=== PATIENT | female | born 1975 | race Caucasian/White ===

== ENCOUNTER 2019-01-19 15:54 | Emergency (ER) | payer OTHER, SELFPAY ==
--- OUTSIDE RECORDS SUMMARY | 2019-01-19 15:56 | XMS REPORT ---
:1975 [facility] Address [address] [place] [address] Dr. Bola[address]. [address] [place] [address] Care Team Providers Name Role Phone Unavailable Unavailable Unavailable Problems This patient has no known problems. Allergies, Adverse Reactions, Alerts This patient has no known allergies or adverse reactions. Medications This patient has no known medications.
--- NOTE | 2019-01-19 17:12 | RAD REPORT ---
EXAM DESCRIPTION: RAD - Foot Left 3 View - 01/19/2019 4:59 pm CLINICAL HISTORY: foot injury COMPARISON: No comparisons FINDINGS: Fracture is noted involving the base of the distal phalanx of the fifth toe. Mild surround ing soft tissue swelling.
--- NOTE | 2019-01-19 17:18 | ER ---
Nurse's Notes [facility] Name: Stefany Allison Age: 43 yrs Sex: Female : 1975 Arrival Date: 01/19/2019 Time: 15:56 Bed 30 Private MD: Diagnosis: Nondisplaced fracture of distal phalanx of left lesser toe(s);Rash and other nonspecific skin eruption Presentation: 01/19 16:05 Presenting complaint: Patient states: Hit L little toe on fan approx 2 weeks ago, is ph still having pain and swelling, also c/o poison sumac rash x 3 days. Transition of care: patient was not received from another setting of care. Onset of symptoms was January 19, 2019. Risk Assessment: Do you want to hurt yourself or someone else? Patient reports no desire to harm self or others. Initial Sepsis Screen: Does the patient meet any 2 criteria? No. Patient's initial sepsis screen is negative. Does the patient have a suspected source of infection? No. Patient's initial sepsis screen is negative. Care prior to arrival: None. 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 - Social history:: Smoking status: Patient uses tobacco products, smokes one-half pack cigarettes per day. - Ebola Screening: : No symptoms or risks identified at this time. Screenin:10 Abuse screen: Denies threats or abuse. Denies injuries from another. Nutritional wh screening: No deficits noted. Tuberculosis screening: No symptoms or risk factors identified. Fall Risk None identified. Assessment: 16:10 General: Appears in no apparent distress. Behavior is calm, cooperative, appropriate wh for age. Pain: Complains of pain in left fifth toe Pain does not radiate. Neuro: Level of Consciousness is awake, alert, obeys commands, Oriented to person, place, time, situation, Appropriate for age. Cardiovascular: Capillary refill < 3 seconds. Respiratory: Airway is patent Respiratory effort is even, unlabored, Respiratory pattern is regular, symmetrical. GI: Abdomen is flat, non-distended. : No signs and/or symptoms were reported regarding the genitourinary system. EENT: No signs and/or symptoms were reported regarding the EENT system. Derm: Skin is intact, is healthy with good turgor, Skin is pink, warm \T\ dry. normal. Musculoskeletal: Circulation, motion, and sensation intact. 17:17 Reassessment: Patient appears in no apparent distress at this time. No changes from previously documented assessment. Patient and/or family updated on plan of care and expected duration. Pain level reassessed. Patient is alert, oriented x 3, equal unlabored respirations, skin warm/dry/pink. Vital Signs: 16:07 BP 141 / 99; Pulse 97; Resp 18; Temp 97.9; Pulse Ox 100% on R/A; Weight 68.04 kg; ph Height 5 ft. 4 in. (162.56 cm); Pain 8/10; 17:18 BP 130 / 89; Pulse 98; Resp 16; Pulse Ox 100% ; lt1 16:07 Body Mass Index 25.75 (68.04 kg, 162.56 cm) ED Course: 15:56 Patient arrived in ED. mr 16:07 Triage completed. 16:08 Arm band placed on Patient placed in an exam room. 16:09 Chuyita Trevino is Primary Nurse. 16:10 Simon Flor PA is PHCP. [facility] 16:10 Beto Clark MD is Attending Physician. [facility] 16:10 Patient has correct armband on for positive identification. Bed in low position. Call light in reach. Side rails up X 1. Pulse ox on. NIBP on. 16:59 Foot Left 3 View XRAY In Process Unspecified. EDMO 17:17 Hai Ghosh DPM is Referral Physician. [facility] 17:19 No provider procedures requiring assistance completed. Patient did not have IV access during this emergency room visit. Administered Medications: No medications were administered Outcome: 17:17 Discharge ordered by . [facility] 17:22 Discharged to home ambulatory. 17:22 Condition: stable 17:22 Discharge instructions given to patient, Instructed on discharge instructions, follow up and referral plans. no drinking with medication, no driving heavy equipment, medication usage, POC Toe fracture and Rash Demonstrated understanding of instructions, follow-up care, medications, POC Prescriptions given X 3. 17:23 Patient left the ED. wh Signatures: Dispatcher [employer] EDMS Simon Flor PA PA jmm Rivera, Mary mr Hall, Patricia, RN RN Belnida, Chuyita Lali Maldonado [facility]
--- NOTE | 2019-01-19 17:18 | EDPHYS ---
Physician Documentation [facility] Name: Stefany Allison Age: 43 yrs Sex: Female : 1975 Arrival Date: 01/19/2019 Time: 15:56 Bed 30 Private MD: ED Physician Beto Clark HPI: 01/19 16:41 This 43 yrs old Female presents to ER via Ambulatory with complaints of Toe jmm Injury. 16:41 The patient presents with an injury, pain. Onset: The symptoms/episode began/occurred jmm acutely, 2 week(s) ago. Modifying factors: The symptoms are alleviated by nothing, the symptoms are aggravated by weight bearing, movement. Associated signs and symptoms: Pertinent positives: swelling. This is a 43 year old female with a history of hlp, htn, NE that presents to the ED with complaints of left 5th toe pain after stubbing her toe. Patient complains of ongoing pain and swelling. Patient also states developing a rash secondary to poison oak 3 days ago to the right side of her chest and face. Denies vomiting, fever, shortness of breath. . 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 - Social history:: Smoking status: Patient uses tobacco products, smokes one-half pack cigarettes per day. - Ebola Screening: : No symptoms or risks identified at this time. ROS: 16:41 Constitutional: Negative for fever, chills, and weight loss, Cardiovascular: Negative jmm for chest pain, palpitations, and edema, Respiratory: Negative for shortness of breath, cough, wheezing, and pleuritic chest pain. 16:41 MS/extremity: Positive for injury or acute deformity, pain, swelling. 16:41 Skin: Positive for rash. 16:41 All other systems are negative. Exam: 16:41 Constitutional: This is a well developed, well nourished patient who is awake, alert, jmm and in no acute distress. Head/Face: atraumatic. Eyes: EOMI, no conjunctival erythema appreciated ENT: Moist Mucus Membranes Neck: Trachea midline, Supple Chest/axilla: Normal chest wall appearance and motion. Cardiovascular: Regular rate and rhythm. No edema appreciated Respiratory: Normal respirations, no respiratory distress appreciated Abdomen/GI: Non distended, soft Back: Normal ROM Skin: General appearance color normal 16:41 Musculoskeletal/extremity: swelling noted to the left 5th toe, < 2 sec dist cap refill, NVI. 16:41 Skin: mild erythema noted to the right side of the chest, neck. . 16:41 Neuro: Motor: is normal. 16:41 Psych: Behavior/mood is pleasant, cooperative. Vital Signs: 16:07 BP 141 / 99; Pulse 97; Resp 18; Temp 97.9; Pulse Ox 100% on R/A; Weight 68.04 kg; ph Height 5 ft. 4 in. (162.56 cm); Pain 8/10; 17:18 BP 130 / 89; Pulse 98; Resp 16; Pulse Ox 100% ; lt1 16:07 Body Mass Index 25.75 (68.04 kg, 162.56 cm) ph Procedures: 17:14 Splinting: Splint applied to left foot using gurinder tape, ortho shoe. applied by tech. eliseo Examined by me, post splint application: neurovascular intact, 2+ distal pulses palpable, brisk capillary refill noted, Patient tolerated well. MDM: 16:22 Patient medically screened. [facility] 17:14 Data reviewed: vital signs, nurses notes. Counseling: I had a detailed discussion with eliseo the patient and/or guardian regarding: the historical points, exam findings, and any diagnostic results supporting the discharge/admit diagnosis, the need for outpatient follow up, to return to the emergency department if symptoms worsen or persist or if there are any questions or concerns that arise at home. 17:14 Data reviewed: radiologic studies, plain films. ED course: Patient is advised to follow [facility] up with podiatry and otherwise given strict return precautions. patient understood and agrees with the plan of care. . 01/19 16:24 Order name: Foot Left 3 View XRAY; Complete Time: 17:19 [facility] 01/19 16:57 Order name: Misc. Order: gurinder tape toe; Complete Time: 17:08 [facility] Administered Medications: No medications were administered Disposition: 01/20 07:09 Co-signature as Attending Physician, Beto Clark MD I agree with the assessment and kdr plan of care. Disposition: 01/19/19 17:17 Discharged to Home. Impression: Nondisplaced fracture of distal phalanx of left lesser toe(s), Rash and other nonspecific skin eruption. - Condition is Stable. - Discharge Instructions: Rash, Toe Fracture. - Prescriptions for Hydroxyzine HCl 25 mg Oral Tablet - take 1 tablet by ORAL route every 6 hours As needed; 30 tablet. Prednisone 20 mg Oral Tablet - take 3 tablet by ORAL route once daily for 5 days; 15 tablet. Ultracet 37.5- 325 mg Oral Tablet - take 1 tablet by ORAL route every 6 hours - for up to 5 days; do not exceed 8 tablets per day.; 12 tablet. - Medication Reconciliation Form, Thank You Letter, Antibiotic Education, Prescription Opioid Use form. - Follow up: Hai Ghosh DPM; When: 2 - 3 days; Reason: Recheck today's complaints, Continuance of care, Re-evaluation by your physician. Signatures: Dispatcher [employer] EDMS Beto Clark MD MD kdr Mickail, Joel, PA PA jmm Hall, Patricia, RN RN [facility] Corrections: (The following items were deleted from the chart) 01/19 17:23 17:17 01/19/2019 17:17 Discharged to Home. Impression: Nondisplaced fracture of distal wh phalanx of left lesser toe(s); Rash and other nonspecific skin eruption. Condition is Stable. Forms are Medication Reconciliation Form, Thank You Letter, Antibiotic Education, Prescription Opioid Use. Follow up: Hai Ghosh; When: 2 - 3 days; Reason: Recheck today's complaints, Continuance of care, Re-evaluation by your physician. eliseo
[2019-01-19 17:28] VITALS: TEMP 97.9; O2SAT 100
[2019-01-19 17:29] VITALS: BP 130/89
== END 2019-01-19 17:23 | disposition home or self-care (01) ==
LOC: ER 15:54
DX: S92.535A Nondisplaced fracture of distal phalanx of left lesser toe(s), initial encounter for closed fracture (principal); R21 Rash and other nonspecific skin eruption; W22.8XXA Striking against or struck by other objects, initial encounter; Y93.9 Activity, unspecified; Y92.9 Unspecified place or not applicable; I10 Essential (primary) hypertension; I25.2 Old myocardial infarction; F17.210 Nicotine dependence, cigarettes, uncomplicated
CPT/HCPCS: 99283

== ENCOUNTER 2019-08-25 12:14 | Inpatient (IN) | payer OTHER ==
--- OUTSIDE RECORDS SUMMARY | 2019-08-25 12:17 | XMS REPORT | Continuity of Care Document ---
:1975 Author Organization [facility] t Address [address] [place] [address] Dr. Núñez [address] [place] [id number] Care Team Providers Name Role Phone Unavailable Unavailable Unavailable Problems This patient has no known problems. Allergies, Adverse Reactions, Alerts This patient has no known allergies or adverse reactions. Medications This patient has no known medications. Procedures This patient has no known procedures. Results This patient has no known results.
[2019-08-25] MEDS ORDERED: ACETAMINOPHEN 500 MG TAB ONE (12:32)
[2019-08-25] MEDS ORDERED: NA CHLORIDE 0.9% 2,000 ML ONE (13:00)
[2019-08-25] MEDS ORDERED: CEFTRIAXONE/SWI 1gm 1 GM/10 ML SYR ONE (13:00)
[2019-08-25 13:13] LABS: Absolute Lymphocytes (CBC) 1.6 K/uL (0.7-4.9); Basophils % 0.3 % (0-1.3); Hematocrit 38.1 % (36.0-45.0); Lymphocytes % 6.6 % (15.3-44.8); MPV 8.6 fL (7.6-11.3); RBC Red Blood Cell Count 4.37 M/uL (3.86-4.86)
[2019-08-25 13:14] LABS: Protime INR 1.3
[2019-08-25 13:28] LABS: ALT/SGPT 12 U/L (12-78); AST/SGOT 11 U/L (15-37); Albumin 2.3 g/dL (3.4-5.0); Alkaline Phosphatase 64 U/L (45-117); Amylase 16 U/L (25-115); BUN Blood Urea Nitrogen 12 mg/dL (7-18); Bicarbonate 20 mmol/L (21-32); Bilirubin Direct 0.3 mg/dL (0-0.2); Bilirubin Total 0.7 mg/dL (0.2-1.0); CKMB Creatine Kinase MB < 1.0 ng/mL (0.3-3.6); Creatine Phosphokinase 38 U/L (26-192); Glucose Level 111 mg/dL (74-106); Lipase 41 U/L (73-393); Protein, Total 6.6 g/dL (6.4-8.2); Sodium Level 133 mmol/L (136-145); Troponin (Emerg Dept Use Only) < 0.02 ng/mL (0.0-0.045)
--- NOTE | 2019-08-25 14:06 | RAD REPORT ---
EXAM DESCRIPTION: Mary Single View08/25/2019 1:32 pm CLINICAL HISTORY: fever COMPARISON: none FINDINGS: The lungs appear clear of acute infiltrate. The heart is normal size IMPRESSION: No acute abnormalities displayed
[2019-08-25 14:09] LABS: Anisocytosis 1+; Blood Morphology Comment NOTED (NOT SEEN); Platelet Estimate ADEQ; Poikilocytosis 2+
--- NOTE | 2019-08-25 14:41 | EDPHYS ---
Physician Documentation [facility] Name: Stefany Allison Age: 44 yrs Sex: Female : 1975 Arrival Date: 08/25/2019 Time: 12:21 Bed 7 Private MD: ED Physician Hayden Wiggins HPI: 08/24 12:48 This 44 yrs old Female presents to ER via EMS with complaints of R/O COVID, pm1 FEVER, MALAISE. 12:48 The patient or guardian reports cough, flu symptoms, myalgias, no appetite, Shortness pm1 of breath. Onset: The symptoms/episode began/occurred 7 day(s) ago. Severity of symptoms: in the emergency department the symptoms are actually worse, shortness of breath is present in the emergency department. Modifying factors: The symptoms are alleviated by nothing, the symptoms are aggravated by nothing. Associated signs and symptoms: Pertinent negatives: chest pain, diarrhea, nausea, sore throat, vomiting. The patient has not recently seen a physician. Patient does not take any medications for her medical problems. Patient reports onset of shortness of breath and fever for the past 7 days. Patient typically smokes 1.5 pack per day and has not been able to smoke since onset of shortness of breath, fever, and coughing. Historical: - Allergies: 12:42 No Known Allergies; bp - Home Meds: 12:42 None [Active]; bp - PMHx: 12:42 COPD; CVA; Hyperlipidemia; Hypertension; Myocardial infarction; Turett's; bp - Immunization history:: Adult Immunizations unknown. - Social history:: Smoking status: Patient reports the use of cigarette tobacco products, unknown amount. ROS: 12:48 Eyes: Negative for injury, pain, redness, and discharge, ENT: Negative for injury, pm1 pain, and discharge, Neck: Negative for injury, pain, and swelling, Cardiovascular: Negative for chest pain, palpitations, and edema, Abdomen/GI: Negative for abdominal pain, nausea, vomiting, diarrhea, and constipation, Back: Negative for injury and pain, : Negative for injury, bleeding, discharge, and swelling, MS/Extremity: Negative for injury and deformity, Skin: Negative for injury, rash, and discoloration, Neuro: Negative for headache, weakness, numbness, tingling, and seizure. 12:48 Constitutional: Positive for body aches, chills, fever, malaise, poor PO intake. 12:48 Respiratory: Positive for cough, shortness of breath. Exam: 12:48 Constitutional: This is a well developed, well nourished patient who is awake, alert, pm1 and in no acute distress. Head/Face: Normocephalic, atraumatic. Chest/axilla: Normal chest wall appearance and motion. Nontender with no deformity. No lesions are appreciated. 12:48 Abdomen/GI: Soft, non-tender, with normal bowel sounds. No distension or tympany. No guarding or rebound. No evidence of tenderness throughout. Back: No spinal tenderness. No costovertebral tenderness. Full range of motion. Skin: Warm, dry with normal turgor. Normal color with no rashes, no lesions, and no evidence of cellulitis. MS/ Extremity: Pulses equal, no cyanosis. Neurovascular intact. Full, normal range of motion. 12:48 Cardiovascular: Rate: tachycardic, Rhythm: regular, Pulses: no pulse deficits are appreciated, Edema: is not appreciated. 12:48 Respiratory: mild respiratory distress is noted, Respirations: tachypnea, 30 Breath sounds: bronchial sounds, that are mild, are heard diffusely. 12:48 Neuro: Exam negative for acute changes, Orientation: is normal, Mentation: is normal, Motor: is normal, moves all fours. Vital Signs: 12:35 BP 121 / 74; Pulse 122; Resp 30; Temp 102.6; Pulse Ox 96% ; Weight 72.57 kg; bp 13:15 BP 105 / 74; Pulse 100; Resp 21; Temp 103.5; Pulse Ox 100% on R/A; bp 14:30 BP 94 / 80; Pulse 95; Resp 20; Pulse Ox 100% ; bp 15:22 BP 107 / 97; Pulse 87; Resp 17; Temp 97.8; Pulse Ox 100% ; bp 16:18 BP 100 / 73; Pulse 89; Resp 19; Pulse Ox 98% ; rb1 MDM: 12:34 Patient medically screened. pm1 14:37 Data reviewed: vital signs. Data interpreted: Pulse oximetry: on room air is 100 %. pm1 Interpretation: normal. 14:37 Counseling: I had a detailed discussion with the patient and/or guardian regarding: the pm1 historical points, exam findings, and any diagnostic results supporting the discharge/admit diagnosis, lab results, radiology results. 14:37 Counseling: I had a detailed discussion with the patient and/or guardian regarding: the pm1 need for further work-up and treatment in the hospital. 14:45 Physician consultation: Saman DALLAS was contacted at 14:45, regarding admission, pm1 patient's condition, and will see patient. 08/24 12:34 Order name: Strep; Complete Time: 13:23 bp 08/24 12:34 Order name: COVID-19; Complete Time: 13:54 bp 08/24 12:34 Order name: Flu; Complete Time: 13:23 bp 08/24 12:48 Order name: Amylase, Serum; Complete Time: 13:33 pm08/24 12:48 Order name: Basic Metabolic Panel; Complete Time: 13:33 pm08/24 12:48 Order name: Blood Culture Adult (2) pm08/24 12:48 Order name: CBC with Diff; Complete Time: 14:19 pm08/24 12:48 Order name: Ckmb; Complete Time: 13:33 pm08/24 12:48 Order name: CPK; Complete Time: 13:33 pm08/24 12:48 Order name: Lactate; Complete Time: 13:33 pm08/24 12:48 Order name: LFT's; Complete Time: 13:33 pm08/24 12:48 Order name: Lipase; Complete Time: 13:33 pm08/24 12:48 Order name: Procalcitonin; Complete Time: 13:45 pm08/24 12:48 Order name: Protime (+inr); Complete Time: 13:45 pm08/24 12:34 Order name: CXR XRAY; Complete Time: 14:19 bp 08/24 12:34 Order name: Droplet/Contact Precautions; Complete Time: 13:22 bp 08/24 12:34 Order name: Labs collected and sent; Complete Time: 13:22 bp 08/24 12:48 Order name: Ptt, Activated; Complete Time: 13:45 pm08/24 12:48 Order name: Troponin (emerg Dept Use Only); Complete Time: 13:33 pm08/24 12:48 Order name: Urine Microscopic Only pm1 08/24 13:09 Order name: Throat Culture EDMA 08/24 13:36 Order name: Manual Differential; Complete Time: 14:19 EDMA 08/24 13:54 Order name: Ferritin; Complete Time: 14:19 la1 08/24 12:34 Order name: O2 Per Protocol; Complete Time: 12:35 bp 08/24 12:48 Order name: Accucheck; Complete Time: 13:21 pm1 08/24 12:48 Order name: Cardiac monitoring; Complete Time: 13:21 pm1 08/24 12:48 Order name: EKG - Nurse/Tech; Complete Time: 13:22 pm1 08/24 12:48 Order name: IV Saline Lock - Large Bore; Complete Time: 13:22 pm1 08/24 12:48 Order name: O2 Sat Monitoring; Complete Time: 13:22 pm1 Administered Medications: 12:34 Drug: Tylenol 1000 mg Route: PO; bp 12:48 Follow up: Response: No adverse reaction bp 12:59 Drug: NS 0.9% (30 ml/kg) 30 ml/kg Route: IV; Rate: bolus; Site: right antecubital; bp 16:54 Follow up: IV Status: Completed infusion; IV Intake: 2100ml bp 13:15 Drug: Rocephin 1 grams Route: IV; Rate: calculated rate; Site: right antecubital; bp 16:54 Follow up: IV Status: Completed infusion; IV Intake: 20ml bp 14:45 Drug: Decadron - Dexamethasone 10 mg Route: IVP; Site: right antecubital; bp 16:54 Follow up: Response: No adverse reaction bp 15:15 Drug: Albuterol HFA Inhaler 2 puffs Route: Inhalation; bp Disposition: 17:38 Co-signature as Attending Physician, Hayden Wiggins MD. rn Disposition: 08/25/19 14:40 Hospitalization ordered by Sudha Becerril for Observation. Preliminary diagnosis is Chronic obstructive pulmonary disease with (acute) exacerbation. - Bed requested for Telemetry/MedSurg (observation). - Status is Observation. bp - Condition is Stable. - Problem is new. - Symptoms have improved. Signatures: Dispatcher [employer] [facility] Hayden Wiggins MD MD rn Saman Collins, IT SYSTEMS ADMINISTRATOR-C IT SYSTEMS ADMINISTRATOR-Cla1 Marcel Antoine, ASSEMBLER SURGICAL GARMENT ASSEMBLER SURGICAL GARMENT pm1 Katya, David, RN RN bp Shonda Ramos Corrections: (The following items were deleted from the chart) 16:06 14:40 Hospitalization Ordered by Sudha Becerril MD for Observation. Preliminary eb diagnosis is Chronic obstructive pulmonary disease with (acute) exacerbation. Bed requested for Telemetry/MedSurg (observation). Status is Observation. Condition is Stable. Problem is new. Symptoms have improved. pm1 17:20 16:06 08/25/2019 14:40 Hospitalization Ordered by Sudha Becerril MD for Observation. bp Preliminary diagnosis is Chronic obstructive pulmonary disease with (acute) exacerbation. Bed requested for Telemetry/MedSurg (observation). Status is Observation. Condition is Stable. Problem is new. Symptoms have improved. eb
--- NOTE | 2019-08-25 14:41 | ER ---
Nurse's Notes [facility] Name: Stefany Allison Age: 44 yrs Sex: Female : 1975 Arrival Date: 08/25/2019 Time: 12:21 Bed 7 Private MD: Diagnosis: Chronic obstructive pulmonary disease with (acute) exacerbation Presentation: 08/24 12:35 Chief complaint: EMS states: FEVER, COUGH, MALAISE. Coronavirus screen: Surgical mask bp placed on patient. Patient moved to private room, placed in contact and droplet isolation with eye protection until further assessment. Patient reports a cough. Patient reports shortness of breath or difficulty breathing. Patient reports a measured and/or subjective temperature greater than 100.4F. Patient denies travel on a cruise ship or to a country the [facility] currently lists as an affected area. Patient reports contact with known and/or suspected case of COVID-19. Ebola Screen: No symptoms or risks identified at this time. Initial Sepsis Screen: Does the patient meet any 2 criteria? RR > 20 per min. Temp <36.0*C (96.8*F)) or > 38.3*C (100.9*F). HR > 90 bpm. Yes Does the patient have a suspected source of infection? Yes: Productive cough/pneumonia. Risk Assessment: Do you want to hurt yourself or someone else? Patient reports no desire to harm self or others. Note CODE SEPSIS 700 CALLED. Onset of symptoms is unknown. Care prior to arrival: IV initiated. 18 GA, in the right antecubital area. 12:35 Method Of Arrival: EMS: [facility] bp 12:35 Acuity: LISA 2 bp Triage Assessment: 12:40 General: Appears distressed, uncomfortable, Behavior is cooperative, appropriate for bp age, anxious. Pain: Denies pain. EENT: Reports nasal congestion. Neuro: Level of Consciousness is awake, alert, obeys commands, Oriented to person, place, time, situation, Appropriate for age. Cardiovascular: Rhythm is sinus tachycardia. Respiratory: Reports shortness of breath cough that is. GI: No signs and/or symptoms were reported involving the gastrointestinal system. : No signs and/or symptoms were reported regarding the genitourinary system. Derm: No deficits noted. Musculoskeletal: No deficits noted. Historical: - Allergies: 12:42 No Known Allergies; bp - Home Meds: 12:42 None [Active]; bp - PMHx: 12:42 COPD; CVA; Hyperlipidemia; Hypertension; Myocardial infarction; Turett's; bp - Immunization history:: Adult Immunizations unknown. - Social history:: Smoking status: Patient reports the use of cigarette tobacco products, unknown amount. Screenin:45 Abuse screen: Denies threats or abuse. Denies injuries from another. Nutritional bp screening: No deficits noted. Tuberculosis screening: No symptoms or risk factors identified. Fall Risk None identified. Assessment: 12:45 General: SEE TRIAGE NOTE. bp 13:15 Reassessment: 2ND BLOOD CX COMPLETED. IVF INFUSING AND INITIAL ABX INFUSING. UOP bp PENDING. 14:30 Reassessment: ADMIT INITIATED. VS IMPROVING ON FLUIDS. bp 15:23 Reassessment: ADMIT IN PROCESS, PT SEEN BY HOSPITALIST. bp 16:54 Reassessment: ADMIT COMPLETE, REPORT TO ERNA REDDING. bp Vital Signs: 12:35 BP 121 / 74; Pulse 122; Resp 30; Temp 102.6; Pulse Ox 96% ; Weight 72.57 kg; bp 13:15 BP 105 / 74; Pulse 100; Resp 21; Temp 103.5; Pulse Ox 100% on R/A; bp 14:30 BP 94 / 80; Pulse 95; Resp 20; Pulse Ox 100% ; bp 15:22 BP 107 / 97; Pulse 87; Resp 17; Temp 97.8; Pulse Ox 100% ; bp 16:18 BP 100 / 73; Pulse 89; Resp 19; Pulse Ox 98% ; rb1 ED Course: 12:21 Patient arrived in ED. bp 12:25 Marcel Antoine NP is PHCP. pm1 12:25 Hayden Wiggins MD is Attending Physician. pm1 12:32 David Aldana, VAHID is Primary Nurse. bp 12:40 Arm band placed on. bp 12:41 Triage completed. bp 12:45 Patient has correct armband on for positive identification. Bed in low position. Call bp light in reach. Side rails up X2. 12:45 Maintain EMS IV. Dressing intact. Good blood return noted. Site clean \T\ dry. Gauge \T\ bp site: 18 G RIGHT AC. 12:49 CXR XRAY Sent. bp 13:32 CXR XRAY In Process Unspecified. EDMS 14:39 Sudha Becerril MD is Hospitalizing Provider. pm1 16:54 No provider procedures requiring assistance completed. Patient admitted, IV remains in bp place. Administered Medications: 12:34 Drug: Tylenol 1000 mg Route: PO; bp 12:48 Follow up: Response: No adverse reaction bp 12:59 Drug: NS 0.9% (30 ml/kg) 30 ml/kg Route: IV; Rate: bolus; Site: right antecubital; bp 16:54 Follow up: IV Status: Completed infusion; IV Intake: 2100ml bp 13:15 Drug: Rocephin 1 grams Route: IV; Rate: calculated rate; Site: right antecubital; bp 16:54 Follow up: IV Status: Completed infusion; IV Intake: 20ml bp 14:45 Drug: Decadron - Dexamethasone 10 mg Route: IVP; Site: right antecubital; bp 16:54 Follow up: Response: No adverse reaction bp 15:15 Drug: Albuterol HFA Inhaler 2 puffs Route: Inhalation; bp Intake: 16:54 IV: 2100ml; Total: 2100ml. bp 16:54 IV: 20ml; Total: 2120ml. bp Outcome: 14:40 Decision to Hospitalize by Provider. pm1 16:54 Admitted to Tele accompanied by tech, via stretcher, room 417, with chart, Report bp called to ERNA REDDING 16:54 Condition: stable 16:54 Instructed on the need for admit. 17:20 Patient left the ED. bp Signatures: Dispatcher [employer] EDMS Rizwana Lopes, RN RN rb1 Marcel Antoine NP PACKAGE LINE OPERATOR pm1 David Aldana RN RN bp Corrections: (The following items were deleted from the chart) 12:48 12:35 BP 121 / 74; Pulse 122bpm; Resp 30bpm; Pulse Ox 96%; Temp 102.6F; bp bp 13:30 13:23 BP 105 / 74; Pulse 100bpm; Resp 21bpm; Pulse Ox 100% RA; Temp 103.5F; bp bp
--- NOTE | 2019-08-25 15:16 | P.HP ---
Certification for Inpatient Patient admitted to: Observation With expected LOS: <2 Midnights Patient will require the following post-hospital care: None Practitioner: I am a practitioner with admitting privileges, knowledge of patient current condition, hospital course, and medical plan of care. Services: Services provided to patient in accordance with Admission requirements found in Title 42 Section 412.3 of the Code of Federal Regulations Patient History Date of Service: 08/25/19 Primary Care Provider: None Reason for admission: COPD exacerbation History of Present Illness: This is a 44-year-old female with past medical history including hypertension, hyperlipidemia, CVA, myocardial infarction, Tourette's who presented to the emergency department with a 1 week history of malaise, fatigue, chills, shortness of breath. Patient reports that she then began having fever at home and increasing shortness of breath. Patient was evaluated in the emergency department for her shortness of breath and was found to have fever, elevated white blood cell count at 24.5, hypokalemia with a potassium of 3.0, a slightly elevated pro calcitonin level. Patient was having mild to moderate wheezing in all lung garcia and was in mild respiratory distress. Patient is not currently requiring any oxygen therapy and chest x-ray was negative for any acute findings. ED provider wishes to admit patient for further evaluation and management this condition. Patient also reports that he is supposed to be taking medications for her cholesterol, preventive medications for CVA and myocardial infarction, medications for COPD but she has not been taking these for the past 1 year as she has not had insurance. Patient also admits to smoking approximately half a pack per day. When I saw the patient in the emergency department she appeared uncomfortable, ill but not septic. Patient's lactic acid was negative. Patient will be admitted for further evaluation management of her condition. Allergies No Known Allergies Allergy (Unverified 05/25/15 17:09) Home medications list reviewed: Yes - Past Medical/Surgical History Has patient received pneumonia vaccine in the past: No Diabetic: No -: Hyperlipidemia -: Hypertension -: CVA -: Myocardial infarction -: Tourettes -: Hysterectomy Psychosocial/ Personal History: Patient lives a house by herself. - Family History Mother -: Heart disease Father -: Heart disease, Cancer Notes: Brain cancer - Social History Smoking Status: Current every day smoker Counseled patient to stop smoking for: less than 10 minutes Smoking therapy provided: Yes Alcohol use: Yes CD- Drugs: Yes Caffeine use: Yes Place of Residence: Home Review of Systems General: Fever, Chills, Weakness, Malaise Eyes: Unremarkable ENT: Unremarkable Respiratory: Shortness of Breath, Sputum, Wheezing, As per HPI Cardiovascular: Unremarkable Gastrointestinal: Unremarkable Genitourinary: Unremarkable Musculoskeletal: Unremarkable Integumentary: Unremarkable Neurological: Unremarkable Lymphatics: Unremarkable Physical Examination - Physical Exam General: Alert, In no apparent distress, Oriented x3 HEENT: Atraumatic, Normocephalic Neck: Supple Respiratory: Expiratory wheezes (Mild, Bilaterally) Cardiovascular: No edema, Normal pulses (Mildly tachycardic) Capillary refill: <2 Seconds Gastrointestinal: Normal bowel sounds, Soft and benign Musculoskeletal: No clubbing, No erythema, No tenderness, No warmth Integumentary: No significant lesion Neurological: Normal speech, Normal strength at 5/5 x4 extr, Normal tone - Studies Laboratory Data (last 24 hrs) 08/25/19 12:59: PT 15.3 H, INR 1.30, APTT 32.1 08/25/19 12:59: WBC 24.7 H*, Hgb 12.5, Hct 38.1, Plt Count 235 08/25/19 12:59: Sodium 133 L, Potassium 3.0 L, BUN 12, Creatinine 0.84, Glucose 111 H, Total Bilirubin 0.7, AST 11 L, ALT 12, Alkaline Phosphatase 64, Amylase 16 L, Lipase 41 L Microbiology Data (last 24 hrs): 08/25/19 12:30 Nasopharnyx Coronavirus COVID-19 PCR - Final 08/25/19 12:30 Nasopharnyx Influenza Type A Antigen Screen - Final 08/25/19 12:30 Nasopharnyx Influenza Type B Antigen Screen - Final 08/25/19 12:30 Throat Group A Streptococcus Rapid Screen - Final Assessment and Plan - Plan Assessment Shortness of breath with fever, leukocytosis suspect COPD exacerbation with bacterial infection versus COVID-19 Hypokalemia Tobacco and marijuana abuse Hypertension Hyperlipidemia History of CVA and myocardial infarction Tourette's Plan Shortness of breath with fever, leukocytosis suspect COPD exacerbation with bacterial infection versus COVID-19: Patient has had 2 sets of blood cultures drawn in the emergency department will obtain sputum culture as well and follow up on culture results. Patient will be given albuterol and ICS inhalers during this hospitalization. Will continue with prednisone 10 mg twice daily at this time. IV antibiotics initiated due to leukocytosis and slightly elevated pro calcitonin level with fever and shortness of breath, will discontinue if patient has viral infection. Patient encouraged to discontinue tobacco use and provided with nicotine patch. Boyle virus swab has been sent, will await results. Patient will remain in isolation with droplet precautions until results have returned. DVT prophylaxis with Lovenox 40 mg subcutaneous once daily. Hypokalemia: Electrolyte protocol in place will recheck potassium in the morning. Tobacco and marijuana abuse: Encouraged tobacco and marijuana cessation, prov ided patient with nicotine patch for this hospitalization. Hypertension: Will obtain it to obtain what medications patient was on previously, patient's blood pressure is not elevated at this time, will continue to monitor blood pressure during this hospitalization to determine patient's need for hypertensive medications. Hyperlipidemia: Will obtain lipid panel for morning labs and determine if patient would benefit from statin therapy. Patient does have a history of CVA and a myocardial infarction, anticipate new prescription for statin at d ischarge. History of CVA and myocardial infarction: Patient be given aspirin 81 mg once daily during this hospitalization. Will recommend patient take aspirin 81 mg once daily at home. Tourette's: Will obtain and continue patient's home medications. Discharge Plan: Home Plan to discharge in: 24 Hours - Advance Directives Does patient have a Living Will: No Does patient have a Durable POA for Healthcare: No - Code Status/Comfort Care Code Status Assessed: Yes (Patient is full code) Critical Care: No Time Spent Managing Pts Care (In Minutes): 55
[2019-08-25] MEDS ORDERED: ALBUTEROL INHALER 60 PUFF/8 GM IH PRN ×2 (15:17→16:53)
[2019-08-25] MEDS ORDERED: dexAMETHasone 10 MG/ML VIAL ONE (15:20)
[2019-08-25] MEDS ORDERED: NA CHLORIDE 0.9% 1,000 ML ONE ×2 (15:20→21:26)
[2019-08-25] MEDS ORDERED: ALBUTEROL INHALER 60 PUFF/8 GM IH ONE (16:00)
[2019-08-25] MEDS ORDERED: ACETAMINOPHEN 500 MG TAB PO PRN (16:53)
[2019-08-25] MEDS ORDERED: NS KCL 20MEQ 20 MEQ/1,000 ML BAG IV SCH (16:53)
[2019-08-25] MEDS ORDERED: ONDANSETRON 4 MG/2 ML VIAL IV PRN (16:53)
[2019-08-25 17:34] LABS: Urine Appearance CLOUDY; Urine Bilirubin NEGATIVE (NEG); Urine Blood 2+ (NEG); Urine Color YELLOW; Urine Glucose NEGATIVE (NEG); Urine Protein 1+ (NEG); Urine Specific Gravity <=1.005 (1.005-1.030)
[2019-08-25 17:36] LABS: Urine Blood 2+ (NEG); Urine Glucose NEGATIVE (NEG); Urine Protein 1+ (NEG)
[2019-08-25 17:40] LABS: Urine Microscopic Reflex ORDER UMIC
[2019-08-25 18:40] LABS: Urine Bacteria >50 /HPF (<20); Urine Culture Reflex Order REFLEXED
[2019-08-25] MEDS ORDERED: POTASSIUM CL SA 10 MEQ TAB PO ONE (18:47)
[2019-08-25] MEDS: predniSONE 10 MG TAB PO SCH (20:12)
[2019-08-25] MEDS ORDERED: NA CHLORIDE 0.9% 1,000 ML IV ONE (21:24)
[2019-08-26 03:38] LABS: Basophils % 0.2 % (0-1.3); Hematocrit 41.5 % (36.0-45.0); Lymphocytes % 4.5 % (15.3-44.8); MPV 9.4 fL (7.6-11.3)
[2019-08-26 03:56] LABS: ALT/SGPT 13 U/L (12-78); AST/SGOT 14 U/L (15-37); Alkaline Phosphatase 73 U/L (45-117); BUN Blood Urea Nitrogen 12 mg/dL (7-18); Bicarbonate 19 mmol/L (21-32); Bilirubin Total 0.3 mg/dL (0.2-1.0); Glucose Level 124 mg/dL (74-106); HDL Cholesterol 13 mg/dL (40-60); LDL Cholesterol, Calculated 93 (<130); Potassium 4.1 mmol/L (3.5-5.1); Protein, Total 6.5 g/dL (6.4-8.2); Sodium Level 145 mmol/L (136-145); Thyroid Stimulating Hormone 0.137 uIU/mL (0.360-3.740)
[2019-08-26] MEDS ORDERED: NA CHLORIDE 0.9% 1,000 ML IV ONE (08:34)
[2019-08-26] MEDS ORDERED: ENOXAPARIN 40 MG/0.4 ML SQ SCH (09:00)
[2019-08-26] MEDS ORDERED: CEFTRIAXONE/SWI 1gm 1 GM/10 ML SYR IVP SCH (09:00)
[2019-08-26] MEDS ORDERED: AZITHROMYCIN IV 500 MG in NA CHLORIDE 0.9% 250 ML IVPB SCH (09:00)
[2019-08-26] MEDS ORDERED: AMIODARONE HCL 150 MG in D5W 100 ML IV STA (09:09)
[2019-08-26] MEDS: ASPIRIN EC 81 MG TAB PO SCH (09:38)
[2019-08-26] MEDS: NICOTINE 21 MG/PAT TD SCH (09:38)
[2019-08-26] MEDS: predniSONE 10 MG TAB PO SCH (09:38)
[2019-08-26] MEDS: ENOXAPARIN 80 MG/0.8 ML SQ SCH ×2 (09:39→20:36)
[2019-08-26] MEDS ORDERED: AMIODARONE HCL 900 MG in Dextrose 5%-Water 482 ML IV SCH (10:00)
[2019-08-26] MEDS: FAMOTIDINE 20 MG TAB PO SCH (11:23)
--- NOTE | 2019-08-26 12:11 | P.PN ---
Subjective Date of Service: 08/26/19 Primary Care Provider: None Chief Complaint: COPD exacerbation Subjective: Other (Patient with atrial fibrillation rate around 110-130. Patient requiring oxygen. Patient transferred to ICU due to new onset atrial fibrillation) Physical Examination - Vital Signs Temperature: 96.7 F Blood Pressure: 108/84 Pulse: 100 Respirations: 16 Pulse Ox (%): 100 - Physical Exam General: Alert, In no apparent distress HEENT: Atraumatic Neck: Supple Respiratory: Expiratory wheezes (Bilateral) Cardiovascular: Irregular heart rate/rhythm (AFib rate around 110-130) Gastrointestinal: Normal bowel sounds, No masses, No rebound, No guarding Integumentary: No tenderness/swelling, No erythema, No warmth, No cyanosis Neurological: Normal speech, Normal strength at 5/5 x4 extr, Normal tone, Normal affect - Studies Laboratory Data (last 24 hrs) 08/26/19 03:11: Sodium 145, Potassium 4.1, BUN 12, Creatinine 0.56, Glucose 124 H, Total Bilirubin 0.3, AST 14 L, ALT 13, Alkaline Phosphatase 73, Triglycerides 103, Cholesterol 127, HDL Cholesterol 13 L, Cholesterol/HDL Ratio 9.77 08/26/19 03:11: WBC 21.4 H*, Hgb 13.4, Hct 41.5, Plt Count 210 08/26/19 03:00: Potassium Cancelled 08/25/19 12:59: PT 15.3 H, INR 1.30, APTT 32.1 08/25/19 12:59: WBC 24.7 H*, Hgb 12.5, Hct 38.1, Plt Count 235 08/25/19 12:59: Sodium 133 L, Potassium 3.0 L, BUN 12, Creatinine 0.84, Glucose 111 H, Total Bilirubin 0.7, AST 11 L, ALT 12, Alkaline Phosphatase 64, Amylase 16 L, Lipase 41 L Microbiology Data (last 24 hrs): 08/25/19 12:30 Nasopharnyx Coronavirus COVID-19 PCR - Final 08/25/19 12:30 Nasopharnyx Influenza Type A Antigen Screen - Final 08/25/19 12:30 Nasopharnyx Influenza Type B Antigen Screen - Final 08/25/19 12:30 Throat Group A Streptococcus Rapid Screen - Final Medications List Reviewed: Yes Assessment & Plan Discharge Plan: Home Plan to discharge in: 72 Hours Physician Review Additional Text: Assessment Shortness of breath with fever, leukocytosis likely related to possible underlying pneumonia complicated with COPD exacerbation New onset atrial fibrillation Hypokalemia Tobacco and marijuana abuse History of Hypertension Hyperlipidemia History of CVA and myocardial infarction Tourette's Plan Shortness of breath with fever, leukocytosis likely related to possible underlying pneumonia complicated with COPD exacerbation: Patient was found to be negative for COVID. Continue with antibiotics to cover for pneumonia. Patient with COPD exacerbation. Will start prednisone and inhaler therapy. Will consult pulmonology to further evaluate. Patient with new onset atrial fibrillation. Patient started on Lovenox. Care discussed with cardiology. Will obtain echocardiogram. Patient started on amiodarone as well. Continue to monitor closely. Recheck chest x-ray today. Wean off oxygen. Provide incentive spirometer. Anticipate improvement over the next 2-3 days. New onset atrial fibrillation: Lovenox adjusted. Spoke with cardiology. Will obtain echocardiogram. Amiodarone initiated. Continue to follow closely. Anticipate improvement. Hypokalemia: Electrolyte protocol in place. Tobacco and marijuana abuse: Patient may require nicotine patch. Encourage cessation. History of Hypertension: Blood pressure stable this time. Patient given IV fluid bolus in ICU. Will monitor blood pressure closely. No need for blood pressure medication at this time. Patient has not followed up with physicians in over 5 years. Hyperlipidemia: Obtain and review lipid panel History of CVA and myocardial infarction: Continue aspirin. Tourette's: Will obtain patient's prior medication list. Patient has seen Neurology in the past. Will have nurse call prior pharmacy to obtain the list of her prior medications. Time Spent Managing Pts Care (In Minutes): 55
[2019-08-26] MEDS: NACHLORIDE 0.45% 1,000 ML IV SCH (13:09)
--- NOTE | 2019-08-26 17:59 | CON ---
Date of Consultation: 08/26/2019 Reason For Consultation: Atrial fibrillation with rapid ventricular response. History Of Present Illness: This is a 44-year-old female who came in to the emergency room after sta rted feeling sick yesterday. Claimed that she started having significant fever and felt the chills a nd body aches. There is no cough, no shortness of breath. Generalized weakness and she had signific ant high fever. Denies having dysuria or urinary urgency. Started having some diarrhea. No abdomin al pain. Presented to the emergency room where she was tested negative for coronavirus; however, she was found to be in atrial fibrillation with rapid ventricular response. Blood pressure was on the l ow side, however, responded very well to IV fluids. Past Medical History: Hypertension, dyslipidemia, questionable heart attack, myocardial infarction, CVA, Tourette syndrome. Medications: Refer to reconciliation sheet for detailed list. Allergies: NO KNOWN DRUG ALLERGIES. Past Surgical History: Hysterectomy. Family History: Coronary artery disease, both sides, early in age. Social History: Smokes half a pack per day. Does not drink. She smokes marijuana occasionally. Do es not use any other drugs. Review of Systems: All systems reviewed and they were negative except as mentioned in the HPI. Physical Examination: Vital Signs: Temperature is 96.7, heart rate is 120 to 130, breathing at 16, blood pressure 108/84. General: Pleasant middle-aged female in no apparent distress. Head and Neck: Pupils are equal and reactive to light. Intact eye movements. No JVD. No cervical lymphadenopathy. Neck: Supple. Thyroid is not enlarged. Lungs: Clear to auscultation bilaterally. No rhonchi, rales, or crackles. No accessory muscle use. Heart : Irregularly irregular. No extra sounds. Abdomen: Soft, nontender. Bowel sounds positive. No organomegaly. No masses or hernia. No rigidi ty or rebound. Extremities: There is no edema, clubbing, or cyanosis. Intact pulses. Skin: No rash. Neurologic: Alert, awake, oriented x3. No acute focal deficits appreciated. Investigations: Potassium is 4.1, creatinine is 0.56. TSH is 1.37. Procalcitonin is 0.71. White b lood cell count is 21,400 with 92% neutrophils. Urine showed urinary tract infection. Assessment And Recommendation: 1.Atrial fibrillation with rapid ventricular response with blood pressure being on the low side like ly due to sepsis. Aggressive IV fluid resuscitation is recommended and start her on amiodarone drip bolus with 150 mg over 10 minutes and then 1 mg/minute for now and reassess and if she converts to si nus rhythm on this, we will plan to start her on oral beta-sloan and further evaluate accordingly. 2.Recommend to obtain echocardiogram to evaluate the heart structure. 3.Sepsis, probably source is urine and patient is currently on wide-spectrum antibiotics. Thank you for the courtesy of this consultation. /PRABHAKAR Voice ID: [id number] Report ID: [id number]
[2019-08-26] MEDS: CEFTRIAXONE/SWI 1gm 1 GM/10 ML SYR IVP SCH (20:36)
[2019-08-26] MEDS: DULERA 100/5 (MOMETASONE/FORMOTEROL) INHALER IH SCH (20:37)
[2019-08-26] MEDS ORDERED: predniSONE 20 MG TAB PO SCH (21:00)
[2019-08-27] MEDS: NACHLORIDE 0.45% 1,000 ML IV SCH (00:27)
[2019-08-27] MEDS: TEMAZEPAM 15 MG CAP PO PRN ×2 (00:55→21:01)
[2019-08-27 05:25] LABS: Absolute Lymphocytes (CBC) 1.7 K/uL (0.7-4.9); Basophils % 0.3 % (0-1.3); Hematocrit 37.6 % (36.0-45.0); Lymphocytes % 6.5 % (15.3-44.8); MPV 10.5 fL (7.6-11.3); RBC Red Blood Cell Count 4.16 M/uL (3.86-4.86)
[2019-08-27 06:21] LABS: Magnesium 2.2 mg/dL (1.8-2.4); Potassium 4.1 mmol/L (3.5-5.1); T3 Free 0.84 pg/mL (2.18-3.98); Thyroid Stimulating Hormone 0.254 uIU/mL (0.360-3.740)
[2019-08-27 07:31] LABS: Blood Morphology Comment NOT SEEN (NOT SEEN); Platelet Estimate ADEQ
--- NOTE | 2019-08-27 09:31 | ECHO ---
HEIGHT: 5 ft 4 in WEIGHT: 159 lb 11.2 oz DATE OF STUDY: 08/26/[address]: Silverio Jackson DO 2-DIMENSIONAL: YES M.MODE: YES DOPPLER: YES COLOR FLOW: YES TDS: NO PORTABLE: NO DEFINITY: NO BUBBLE STUDY: NO DIAGNOSIS: ATRIAL FIBRILLATION CARDIAC HISTORY: CATHERIZATION: SURGERY: PROSTHETIC VALVE: PACEMAKER: MEASUREMENTS (cm) DIASTOLIC (NORMALS) SYSTOLIC (NORMALS) IVSd 0.9 (0.6-1.2) LA Diam 3.8 (1.9-4.0) LVEF 57% LVIDd 4.4 (3.5-5.7) LVIDs 3.1 (2.0-3.5) %FS 30% LVPWd 1.0 (0.6-1.2) Ao Diam 2.9 (2.0-3.7) 2 DIMENSIONAL ASSESSMENT: RIGHT ATRIUM: NORMAL LEFT ATRIUM: NORMAL RIGHT VENTRICLE: NORMAL LEFT VENTRICLE: NORMAL TRICUSPID VALVE: MILD TR MITRAL VALVE: MILD MR PULMONIC VALVE: NOT SEEN WELL AORTIC VALVE: NORMAL PERICARDIAL EFFUSION: NONE AORTIC ROOT: NORMAL LEFT VENTRICULAR WALL MOTION: NORMAL DOPPLER/COLOR FLOW: NORMAL COMMENTS: NORMAL LEFT VENTRICULAR EJECTION FRACTION WITH NORMAL WALL MOTION. ATRIAL FIBRILLATION. MILD TRICUSPID AND MITRAL REGURGITATION. TECHNOLOGIST: Chance MCCORMICK
[2019-08-27] MEDS: METOPROLOL TAR 25 MG TAB PO SCH ×2 (10:14→20:46)
[2019-08-27] MEDS: FAMOTIDINE 20 MG TAB PO SCH (10:15)
[2019-08-27] MEDS: ENOXAPARIN 80 MG/0.8 ML SQ SCH ×2 (10:15→20:46)
[2019-08-27] MEDS: CEFTRIAXONE/SWI 1gm 1 GM/10 ML SYR IVP SCH ×2 (10:15→20:48)
[2019-08-27] MEDS: ASPIRIN EC 81 MG TAB PO SCH (10:15)
[2019-08-27] MEDS: NICOTINE 21 MG/PAT TD SCH (10:16)
[2019-08-27] MEDS: DULERA 100/5 (MOMETASONE/FORMOTEROL) INHALER IH SCH ×2 (10:19→20:55)
--- NOTE | 2019-08-27 12:35 | EKG ---
Test Date: 2019-08-25 Test Time: 13:08:39 Box Nailer: BP MEASUREMENT RESULTS: Intervals: Rate: 107 NC: 152 QRSD: 100 QT: 334 QTc: 445 Nikolski: P: 81 NC: 152 QRS: 71 T: 71 INTERPRETIVE STATEMENTS: Sinus tachycardia Otherwise normal ECG No previous ECG available for comparison Electronically Signed On 08-27-19 12:33:17 CDT by Aidan Koch
--- NOTE | 2019-08-27 15:44 | P.PN ---
Subjective Date of Service: 08/27/19 Primary Care Provider: None Chief Complaint: COPD exacerbation Subjective: Improving, Doing well Physical Examination - Vital Signs Temperature: 97.5 F Blood Pressure: 121/94 Pulse: 82 Respirations: 23 Pulse Ox (%): 23 - Physical Exam General: Alert, Cooperative HEENT: Atraumatic Neck: Supple Respiratory: Clear to auscultation bilaterally, Normal air movement Cardiovascular: Irregular heart rate/rhythm (Rate controlled, a fib) Neurological: Normal speech, Normal strength at 5/5 x4 extr, Normal tone, Normal affect - Studies Microbiology Data (last 24 hrs): 08/25/19 12:30 Throat Culture & Sensitivity - Final NORMAL UPPER RESPIRATORY BLADIMIR GROWN. 08/25/19 12:59 Blood - Blood Gram Stain - Final Medications List Reviewed: Yes Assessment & Plan Discharge Plan: Home Plan to discharge in: 48 Hours Physician Review Additional Text: Assessment Shortness of breath with fever, leukocytosis likely related to possible underlying pneumonia complicated with COPD exacerbation New onset atrial fibrillation Hypokalemia Tobacco and marijuana abuse History of Hypertension Hyperlipidemia History of CVA and myocardial infarction Tourette's Subclinical hyperthyroidism Plan Shortness of breath with fever, leukocytosis likely related to possible underlying pneumonia complicated with COPD exacerbation: White count slightly elevated today likely related to steroids. Patient has responded well. No need for oral steroids at this time. Continue with COPD treatment. Continue antibiotic therapy. Patient still in atrial fibrillation. Case discussed with cardiology. Metoprolol added. Continue anti coagulation therapy. Continue to wean off oxygen. Anticipate improvement over the next 1-2 days. New onset atrial fibrillation: Lovenox adjusted. Spoke with cardiology. Patient remains on amiodarone. Still not in sinus rhythm. Metoprolol added. Hypokalemia: Electrolyte protocol in place. Tobacco and marijuana abuse: Will provide nicotine patch. Encourage cessation. History of Hypertension: Metoprolol added Hyperlipidemia: Obtain and review lipid panel History of CVA and myocardial infarction: Continue aspirin. Tourette's: Will obtain patient's prior medication list. Patient has seen Neurology in the past. Will have nurse call prior pharmacy to obtain the list of her prior medications. Subclinical hyperthyroidism: Recommend to recheck lab due in 4-6 weeks. If still half-normal patient will require endocrinology workup. Time Spent Managing Pts Care (In Minutes): 55
[2019-08-28 05:14] LABS: Absolute Lymphocytes (CBC) 2.5 K/uL (0.7-4.9); Basophils % 0.5 % (0-1.3); Hematocrit 38.4 % (36.0-45.0); Lymphocytes % 17.5 % (15.3-44.8); MPV 10.2 fL (7.6-11.3)
[2019-08-28 05:26] LABS: Potassium 3.3 mmol/L (3.5-5.1)
[2019-08-28] MEDS: NACHLORIDE 0.45% 1,000 ML IV SCH (05:30)
[2019-08-28] MEDS ORDERED: POTASSIUM CL SA 10 MEQ TAB PO ONE (06:12)
[2019-08-28 06:21] VITALS: BMI 27.7
[2019-08-28] MEDS: CEFTRIAXONE/SWI 1gm 1 GM/10 ML SYR IVP SCH (08:12)
[2019-08-28] MEDS: NICOTINE 21 MG/PAT TD SCH (08:14)
[2019-08-28] MEDS: METOPROLOL TAR 25 MG TAB PO SCH (08:14)
[2019-08-28] MEDS: FAMOTIDINE 20 MG TAB PO SCH (08:14)
[2019-08-28 08:15] VITALS: O2SAT 95
[2019-08-28] MEDS: DULERA 100/5 (MOMETASONE/FORMOTEROL) INHALER IH SCH (08:15)
[2019-08-28] MEDS: ENOXAPARIN 80 MG/0.8 ML SQ SCH (08:15)
[2019-08-28] MEDS: ASPIRIN EC 81 MG TAB PO SCH (08:18)
[2019-08-28] MEDS ORDERED: AMIODARONE HCL 200 MG TAB PO SCH (09:00)
--- NOTE | 2019-08-28 11:53 | P.DS ---
Admission Date: 08/26/19 Discharge Date: 08/28/19 Primary Care Provider: None Disposition: ROUTINE DISCHARGE Discharge Condition: GOOD Reason for Admission: COPD exacerbation Consultations: Cardiology-Dr. Koch Pulmonary-Dr. Gilliland Procedures: CXR: COMPARISON: none FINDINGS: The lungs appear clear of acute infiltrate. The heart is normal size IMPRESSION: No acute abnormalities displayed ECHO: EF 57% LEFT VENTRICULAR WALL MOTION: NORMAL DOPPLER/COLOR FLOW: NORMAL COMMENTS: NORMAL LEFT VENTRICULAR EJECTION FRACTION WITH NORMAL WALL MOTION. ATRIAL FIBRILLATION. MILD TRICUSPID AND MITRAL REGURGITATION. Medical Problem List: Shortness of breath with fever, leukocytosis secondary to suspect pneumonia with noted bacteremia, blood culture positive for E coli, complicated with COPD exacerbation New onset atrial fibrillation now on chronic anti coagulation therapy Hypokalemia Tobacco and marijuana abuse Hypertension History of CVA and myocardial infarction Subclinical hyperthyroidism Brief History of Present Illness: 45-year-old female with history of COPD, hypertension, hyperlipidemia, CVA, CAD. Patient presented with increasing shortness of breath and fever. Patient found to have elevated leukocytosis. Pneumonia was suspected. COPD exacerbation also likely. Patient admitted for further evaluation. Hospital Course: Patient presented with shortness of breath, fever and leukocytosis. Pneumonia was suspected. Chest x-ray unremarkable. This was further complicated with COPD exacerbation. Patient was treated with antibiotic therapy and COPD me dication. During the course of her stay patient developed new onset atrial fibrillation. Patient required ICU evaluation and treatment. This included IV amiodarone and cardiology evaluation. Her condition improved. Echocardiogram unremarkable. Patient was transition to oral amiodarone. No further cardiac intervention required. At discharge blood pressure stable and patient remains in atrial fibrillation with rate controlled. Room-air saturations within normal range. Blood cultures were positive for E coli bacteremia. At discharge for her new onset atrial fibrillation, patient will continue with amiodarone 400 mg 1 pill twice daily and Eliquis 5 mg 1 pill twice daily. Education on both medication will be provided. Patient will need to monitor for any bleeding. Education on atrial fibrillation and chronic anti coagulation therapy will be provided. For her E. coli bacteremia and suspected pneumonia, patient will continue with Augmentin 875 mg 1 pill twice daily for 14 days. Recommend to recheck blood culture after that time to monitor resolution. Recommend to recheck chest x-ray in 2-4 weeks to monitor resolution as well. For her COPD patient will continue with Symbicort 2 puffs twice daily and Xopenex 2 puffs 3 times a day as needed for shortness of breath. Patient with history of hypertension. Blood pressure has remained stable. No need for medication at this time. Patient had some hypokalemia. Electrolyte protocol was in place. Potassium improved. Recommend to recheck BMP in 1 week to monitor her progress. Patient admits tobacco and marijuana use. Recommend cessation education. Patient provided nicotine patch to help with this cessation. Patient with hyperlipidemia. Recommend to recheck fasting lipid panel in 4-6 weeks. Patient may require medication in the future. This can be further addressed by cardiology. Patient with subclinical hyperthyroidism. Recommend to recheck tsh and free T4 in 2-4 weeks to re-evaluate. If still abnormal patient will require endocrinology evaluation and possible treatment. Vital Signs/Physical Exam: Temp Pulse Resp BP Pulse Ox 97.3 F 95 H 21 H 78/36 L 94 08/28/19 04:00 08/28/19 11:00 08/28/19 11:00 08/28/19 11:00 08/28/19 02:00 General: Alert, In no apparent distress, Oriented x3, Cooperative HEENT: Atraumatic Neck: Supple Respiratory: Clear to auscultation bilaterally, Normal air movement Laboratory Data at Discharge: WBC 14.1 K/uL (4.3-10.9) H D 08/28/19 04:41 Hgb 12.5 g/dL (12.0-15.0) 08/28/19 04:41 Hct 38.4 % (36.0-45.0) 08/28/19 04:41 Plt Count 307 K/uL (152-406) 08/28/19 04:41 PT 15.3 SECONDS (9.5-12.5) H 08/25/19 12:59 INR 1.30 08/25/19 12:59 APTT 32.1 SECONDS (24.3-36.9) 08/25/19 12:59 Sodium 143 mmol/L (136-145) 08/28/19 04:41 Potassium 3.3 mmol/L (3.5-5.1) L 08/28/19 04:41 BUN 20 mg/dL (7-18) H 08/28/19 04:41 Creatinine 0.76 mg/dL (0.55-1.3) 08/28/19 04:41 Glucose 95 mg/dL (74-106) 08/28/19 04:41 Magnesium 2.0 mg/dL (1.8-2.4) 08/28/19 04:41 Total Bilirubin 0.3 mg/dL (0.2-1.0) 08/26/19 03:11 AST 14 U/L (15-37) L 08/26/19 03:11 ALT 13 U/L (12-78) 08/26/19 03:11 Alkaline Phosphatase 73 U/L (45-117) 08/26/19 03:11 Triglycerides 103 mg/dL (<150) 08/26/19 03:11 Cholesterol 127 mg/dL (<200) 08/26/19 03:11 HDL Cholesterol 13 mg/dL (40-60) L 08/26/19 03:11 Cholesterol/HDL Ratio 9.77 08/26/19 03:11 Amylase 16 U/L (25-115) L 08/25/19 12:59 Lipase 41 U/L (73-393) L 08/25/19 12:59 Home Medications: Amiodarone HCl [Cordarone*] 400 mg PO BID #120 tab 08/28/19 Amox/Clavulanate [Augmentin 875-125 Tab] 875 mg PO BID #28 tab 08/28/19 Apixaban [Eliquis] 5 mg PO BID #60 tablet 08/28/19 Budesonide/Formoterol Fumarate [Symbicort 160-4.5 Mcg Inhaler] 2 puff IH BID #1 hfa.aer.ad 08/28/19 Levalbuterol Tartrate [Xopenex Hfa] 2 puff IH TID PRN #1 hfa.aer.ad 08/28/19 Metoprolol Tartrate [Lopressor*] 12.5 mg PO BID #60 tab 08/28/19 Nicotine [Nicoderm*] 21 mg TD DAILY #30 patch.td24 08/28/19 New Medications: Amox/Clavulanate [Augmentin 875-125 Tab] 875 mg PO BID #28 tab Amiodarone HCl [Cordarone*] 400 mg PO BID #120 tab Apixaban [Eliquis] 5 mg PO BID #60 tablet Metoprolol Tartrate [Lopressor*] 12.5 mg PO BID #60 tab Nicotine [Nicoderm*] 21 mg TD DAILY #30 patch.td24 Budesonide/Formoterol Fumarate [Symbicort 160-4.5 Mcg Inhaler] 2 puff IH BID #1 hfa.aer.ad Levalbuterol Tartrate [Xopenex Hfa] 2 puff IH TID PRN #1 hfa.aer.ad PRN Reason: Shortness Of Breath Patient Discharge Instructions: 1. Recommend follow up with PCP in 1 week to follow up this hospitalization. 2. Patient presented with shortness of breath, fever and leukocytosis. Pneumonia was suspected. Chest x-ray unremarkable. This was further complicated with COPD exacerbation. Patient was treated with antibiotic therapy and COPD medication. During the course of her stay patient developed new onset atrial fibrillation. Patient required ICU evaluation and treatment. This included IV amiodarone and cardiology evaluation. Her condition improved. Echocardiogram unremarkable. Patient was transition to oral amiodarone. No further cardiac intervention required. At discharge blood pressure stable and patient remains in atrial fibrillation with rate controlled. Room-air saturations within normal range. Blood cultures were positive for E coli bacteremia. At discharge for her new onset atrial fibrillation, patient will continue with amiodarone 400 mg 1 pill twice daily and Eliquis 5 mg 1 pill twice daily. Education on both medication will be provided. Patient will need to monitor for any bleeding. Education on atrial fibrillation and chronic anti coagulation therapy will be provided. For her E. coli bacteremia and suspected pneumonia, patient will continue with Augmentin 875 mg 1 pill twice daily for 14 days. Recommend to recheck blood culture after that time to monitor resolution. Recommend to recheck chest x-ray in 2-4 weeks to monitor resolution as well. For her COPD patient will continue with Symbicort 2 puffs twice daily and Xopenex 2 puffs 3 times a day as needed for shortness of breath. 4. Patient with history of hypertension. Blood pressure has remained stable. No need for medication at this time. 5. Patient had some hypokalemia. Electrolyte protocol was in place. Potassium improved. Recommend to recheck BMP in 1 week to monitor her progress. 6. Patient admits tobacco and marijuana use. Recommend cessation education. Patient provided nicotine patch to help with this cessation. 7. Patient with hyperlipidemia. Recommend to recheck fasting lipid panel in 4-6 weeks. Patient may require medication in the future. This can be further addressed by cardiology. 8. Patient with subclinical hyperthyroidism. Recommend to recheck tsh and free T4 in 2-4 weeks to re- evaluate. If still abnormal patient will require endocrinology evaluation and possible treatment. Diet: AHA Activity: Ad joselyn Time spent managing pt's care (in minutes): 55
--- NOTE | 2019-08-28 12:31 | PN ---
Date of Progress Note: 08/27/2019 History: Ms. Allison is a 44-year-old woman who was admitted with sepsis, COPD exacerbation, has been on IV amiodarone, aspirin, Lovenox, antibiotics. Echocardiogram is pending for today. She was seen by Dr. Price for her atrial fibrillation yesterda y. She remains in atrial fibrillation at a rate of 80. Her TSH is 0.254. Her white count is about 27,000. As mentioned earlier, her echocardiogram is pending. I would like to continue her IV amiodarone, con finance insurance manager DC prednisone, add a low-dose beta sloan and we will see how she does in the morning. RODGER/PRABHAKAR Voice ID: [id number] Report ID: [id number]
[2019-08-28 12:46] VITALS: BP 111/89
--- NOTE | 2019-08-28 12:46 | PN ---
Date of Progress Note: 08/28/2019 History: Ms. Allison has been followed for atrial fibrillation that was new in onset. She has COPD. Had sepsis that has been treated successfully. She is feeling good right now. Her white count has improved. She remained in atrial fibrillation at a rate of 80 on low-dose beta-sloan and IV amioda shania. I would then feel comfortable with her being switched to p.o. amiodarone 400 mg b.i.d. for 1 w [place]ka[place] point. After that, we will leave her on 200 mg daily. If she does not convert within the next 2-3 wee ks, we will probably do a cardioversion. I will see her in the office in the near future. Echocardi ogram was normal. RODGER/PRABHAKAR Voice ID: [id number] Report ID: [id number]
[2019-08-28 14:11] VITALS: TEMP 97.9
== END 2019-08-28 13:30 | disposition home or self-care (01) | DRG 871 ==
LOC: ER 12:14 → ERHOLD 15:01 → 4TH 16:52 → 3RD-ICU 23:40 → OBSVTOIN 08-26 07:57
PROVIDERS: ADMIT Internal Medicine; ATTEND Family Medicine
DX: A41.9 Sepsis, unspecified organism (principal); J18.9 Pneumonia, unspecified organism; J44.1 Chronic obstructive pulmonary disease with (acute) exacerbation; J44.0 Chronic obstructive pulmonary disease with (acute) lower respiratory infection; E78.5 Hyperlipidemia, unspecified; I10 Essential (primary) hypertension; Z86.73 Personal history of transient ischemic attack (TIA), and cerebral infarction without residual deficits; I25.2 Old myocardial infarction; R06.02 Shortness of breath; Z20.828 Contact with and (suspected) exposure to other viral communicable diseases; E87.6 Hypokalemia; Z91.14 Patient's other noncompliance with medication regimen; F17.200 Nicotine dependence, unspecified, uncomplicated; Z90.710 Acquired absence of both cervix and uterus; Z60.2 Problems related to living alone; F95.2 Tourette's disorder; F12.10 Cannabis abuse, uncomplicated; R50.9 Fever, unspecified; R05 Cough; I48.91 Unspecified atrial fibrillation; E05.90 Thyrotoxicosis, unspecified without thyrotoxic crisis or storm; B96.20 Unspecified Escherichia coli [E. coli] as the cause of diseases classified elsewhere; Z79.01 Long term (current) use of anticoagulants; I25.10 Atherosclerotic heart disease of native coronary artery without angina pectoris; Z79.51 Long term (current) use of inhaled steroids; Z79.899 Other long term (current) drug therapy
CPT/HCPCS: 36415; 71045; 80048; 80053; 80061; 80076; 81003; 81015; 81025; 82150; 82550; 82553; 82728; 83605; 83690; 83735; 84145; 84439; 84443; 84481; 84484; 85025; 85610; 85730; 87040; 87070; 87077; 87081; 87086; 87088; 87186; 87205; 87804; 93005; 93306; 96365; 96366; 96375; 99285; G0378; J0282; J0456; J0696; J1100; J1650; J2405; J7030; J7060; J7512; J7606; U0002

== ENCOUNTER 2023-09-30 17:33 | Inpatient (IN) | payer OTHER ==
--- NOTE | 2023-09-30 18:03 | RAD REPORT ---
EXAM DESCRIPTION: CT - Ct Stroke Brain Wo Cont - 09/30/2023 5:53 pm CLINICAL HISTORY: STROKE ALERT Headache, drowsiness, CVA symptomology COMPARISON: <Comparisons> TECHNIQUE: All CT scans are performed using dose optimization technique as appropriate and may inclu de automated exposure control or mA/KV adjustment according to patient size. FINDINGS: No intracranial hemorrhage, hydrocephalus or extra-axial fluid collection.No areas of brai n edema or evidence of midline shift. The paranasal sinuses and mastoids are clear. The calvarium is intact. IMPRESSION: No acute intracranial abnormality.
[2023-09-30 18:12] LABS: Absolute Basophils 0.1 K/uL (0-0.5); Absolute Eosinophils 0.2 K/uL (0-0.5); Absolute Lymphocytes (CBC) 2.3 K/uL (0.7-4.9); Absolute Monocytes 0.8 K/uL (0.1-1.3); Absolute Neutrophil 7.2 K/uL (1.8-8.0); Basophils % 1.2 % (0-1.3); Hematocrit 44.1 % (36.0-45.0); Hemoglobin 14.4 g/dL (12.0-15.0); Lymphocytes % 21.5 % (15.3-44.8); MCH 29.6 pg (27.0-35.0); MCHC 32.7 g/dL (32.0-36.0); MCV 90.4 fL (80-100); MPV 7.5 fL (7.6-11.3); Neutrophils % 67.3 % (41.7-73.7); Nucleated Red Blood Cells % 0.1 % (0-0); Platelets 296 thou/uL (152-406); RBC Red Blood Cell Count 4.88 M/uL (3.86-4.86); Red Cell Distribution Width 14.2 % (12.1-15.2)
[2023-09-30 18:24] LABS: PT Prothrombin Time 9.9 SECONDS (9.4-12.5); PTT, Activated Partial Thromb 34.7 SECONDS (24.3-36.9); Protime INR 0.88
--- NOTE | 2023-09-30 18:32 | RAD REPORT ---
EXAM DESCRIPTION: RAD - Chest Single View - 09/30/2023 6:27 pm CLINICAL HISTORY: cva Chest pain. COMPARISON: <Comparisons> FINDINGS: Portable technique limits examination quality. Mild interstitial lung opacities bilaterally could be related to bronchitis or pulmonary edema. The h eart is normal in size. No displaced fractures.
[2023-09-30 18:35] LABS: ALT/SGPT 37 U/L (13-56); AST/SGOT 24 U/L (15-37); Albumin 3.2 g/dL (3.4-5.0); Albumin/Globulin Ratio 0.8 (1.1-1.8); Alkaline Phosphatase 108 U/L (45-117); Anion Gap 8.9 mEq/L (5.0-15.0); BUN Blood Urea Nitrogen 18 mg/dL (7-18); Bicarbonate 26 mEq/L (21-32); Bilirubin Total 0.3 mg/dL (0.2-1.0); Glomerular Filtration Rate 69 ml/min (=/>90); Glucose Level 126 mg/dL (74-106); Magnesium 2.3 mg/dL (1.6-2.4); Potassium 3.9 mEq/L (3.5-5.1); Protein, Total 7.2 g/dL (6.4-8.2); Sodium Level 139 mEq/L (136-145)
--- NOTE | 2023-09-30 18:36 | RAD REPORT ---
EXAM DESCRIPTION: CT - Head angio - 09/30/2023 6:30 pm CLINICAL HISTORY: stroke alert Headache, CVA COMPARISON: <Comparisons> TECHNIQUE: CT angiography of the head was performed with MIPs. All CT scans are performed using dose optimization technique as appropriate and may include automated exposure control or mA/KV adjustment according to patient size. FINDINGS: No evidence of large vessel occlusion. No evidence of aneurysm is detected. No flow-limiti ng stenosis or vascular malformation identified. Antegrade flow is seen in the vertebral arteries. The vertebral arteries are codominant. The visualized dural venous sinuses are patent. IMPRESSION: No significant flow abnormality is detected.
--- NOTE | 2023-09-30 18:38 | RAD REPORT ---
EXAM DESCRIPTION: CT - Neck Angio - 09/30/2023 6:29 pm CLINICAL HISTORY: cva Headache, drowsiness COMPARISON: <Comparisons> TECHNIQUE: CT angiography of the neck vessels was performed with MIPs. All CT scans are performed using dose optimization technique as appropriate and may include automated exposure control or mA/KV adjustment according to patient size. FINDINGS: A left aortic arch is identified with normal three vessel configuration of the great vesse ls. No significant flow abnormality is seen of the common carotid bilaterally. Mild to moderate hard plaque is seen in both carotid bulbs. Stenosis of less than 50% bilaterally bas ed on NASCET criteria. Normal flow is seen within both vertebral arteries. IMPRESSION: Hard plaquing in both carotid bulb resulting in stenosis of less than 50%. NASCET criteria used. Mild 0-49% stenosis Moderate 50-69% stenosis Severe 70-99% stenosis
[2023-09-30 18:43] LABS: Bilirubin Direct < 0.2 mg/dL (0-0.2); Bilirubin Indirect, Calculated 0.1 mg/dL (0.2-0.8)
[2023-09-30] MEDS ORDERED: ASPIRIN EC 325 MG TABLET PO ONE (19:11)
--- NOTE | 2023-09-30 19:37 | EDPHYS ---
Physician Documentation [facility] Name: Stefany Allison Age: 48 yrs Sex: Female : 1975 Arrival Date: 09/30/2023 Time: 17:33 Bed 18 Private MD: ED Physician Sandeep Wheeler HPI: 09/29 19:12 This 48 yrs old Female presents to ER via Wheelchair with complaints of Weakness, rt Slurred Speech. 19:12 Patient presents to the ED with slurred speech, right-sided weakness. This started the rt patient woke up this way. Went to bed normal. Denies other acute complaints at this time, symptoms are moderate in severity, no other aggravating or alleviating factors.. 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 - Infectious Disease History:: Denies. - Social history:: Smoking status: Patient reports the use of cigarette tobacco products, smokes one pack cigarettes per day. - Family history:: not pertinent. ROS: 19:15 Constitutional: Negative for fever, chills, and weight loss, Cardiovascular: Negative rt for chest pain, palpitations, and edema, Respiratory: Negative for shortness of breath, cough, wheezing, and pleuritic chest pain, Abdomen/GI: Negative for abdominal pain, nausea, vomiting, diarrhea, and constipation, Skin: Negative for injury, rash, and discoloration, 19:15 Neuro: Positive for speech changes, weakness, Exam: 19:15 Constitutional: This is a well developed, well nourished patient who is awake, alert, rt and in no acute distress. Chest/axilla: Normal chest wall appearance and motion. Nontender with no deformity. No lesions are appreciated. Cardiovascular: Regular rate and rhythm with a normal S1 and S2. No gallops, murmurs, or rubs. Normal PMI, no JVD. No pulse deficits. Respiratory: Lungs have equal breath sounds bilaterally, clear to auscultation and percussion. No rales, rhonchi or wheezes noted. No increased work of breathing, no retractions or nasal flaring. Abdomen/GI: Soft, non-tender, with normal bowel sounds. No distension or tympany. No guarding or rebound. No evidence of tenderness throughout. Skin: Warm, dry with normal turgor. Normal color with no rashes, no lesions, and no evidence of cellulitis. MS/ Extremity: Pulses equal, no cyanosis. Neurovascular intact. Full, normal range of motion. 19:15 Eyes: Left cornea clouded, visual field deficits on the left side, extraocular muscles intact, conjunctiva normal. 19:15 ECG was reviewed by the Attending Physician. 19:15 Neuro: Drift in right upper, right lower extremities, right-sided facial droop, sensory deficits on the right upper, lower extremity, slurred speech, no aphasia noted, Vital Signs: 17:38 BP 157 / 95; Pulse 104; Resp 18; Temp 97.5(TE); Pulse Ox 98% on R/A; Weight 68.04 kg nj1 (R); Height 5 ft. 4 in. (R); 18:30 BP 147 / 93; Pulse 86; Resp 16; Pulse Ox 96% ; me1 19:30 BP 159 / 95; Pulse 81; Resp 14; Pulse Ox 98% ; me1 20:30 BP 144 / 83; Pulse 85; Resp 14; Pulse Ox 96% ; me1 21:30 BP 137 / 98; Pulse 85; Resp 13; Pulse Ox 96% ; me1 22:30 BP 130 / 89; Pulse 87; Resp 12; Temp 98.2; Pulse Ox 94% ; me1 17:38 Body Mass Index 25.75 (68.04 kg, 162.56 cm) nj NIH Stroke Scale Scores: 18:03 NIHSS Score: 6 me1 MDM: 17:44 Patient medically screened. rt 19:15 Data reviewed: vital signs, nurses notes, lab test result(s), EKG, radiologic studies. rt Consideration of Admission/Observation Patient was admitted/placed on observation. I considered the following discharge prescriptions or medication management in the emergency department Medications were administered in the Emergency Department. See MAR. Independent interpretation of the following test(s) in the Emergency Department X-Ray: My interpretation is No pneumonia seen on interpretation of x-ray images. Care significantly affected by the following chronic conditions: Chronic Obstructive Pulmonary Disease. Counseling: I had a detailed discussion with the patient and/or guardian regarding the historical points, exam findings, and any diagnostic results supporting the discharge/admit diagnosis, lab results, radiology results, the need for further work-up and treatment in the hospital. Response to treatment: There is no appreciated change of the patient's symptoms at this time. 09/29 17:44 Order name: Basic Metabolic Panel; Complete Time: 18:49 rt 09/29 17:44 Order name: CBC with Diff; Complete Time: 18:39 rt 09/29 17:44 Order name: Hepatic Function; Complete Time: 18:49 rt 09/29 17:44 Order name: High Sensitivity Troponin; Complete Time: 18:49 rt 09/29 17:44 Order name: Magnesium; Complete Time: 18:49 rt 09/29 17:44 Order name: Protime (+inr); Complete Time: 18:39 rt 09/29 17:44 Order name: Ptt, Activated; Complete Time: 18:39 rt 09/29 18:18 Order name: Glucose, Ancillary Testing; Complete Time: 18:39 EDFL 09/29 19:25 Order name: Lipid Profile EDFL 09/29 19:25 Order name: Lipid Profile EDFL 09/29 19:25 Order name: Troponin High Sensitivity EDFL 09/29 17:44 Order name: CT Neck Angio; Complete Time: 18:39 rt 09/29 17:44 Order name: CT Stroke Brain w/o Contrast; Complete Time: 18:09 rt 09/29 17:44 Order name: Stroke CXR 1 View; Complete Time: 18:39 rt 09/29 18:19 Order name: Head angio; Complete Time: 18:39 EDFL 09/29 19:25 Order name: Stroke Protocol EDFL 09/29 19:25 Order name: IRF Screen EDFL 09/29 17:44 Order name: Accucheck; Complete Time: 19:18 rt 09/29 17:44 Order name: Cardiac monitoring; Complete Time: 18:50 rt 09/29 17:44 Order name: EKG - Nurse/Tech; Complete Time: 18:50 rt 09/29 17:44 Order name: IV Saline Lock; Complete Time: 19:18 rt 09/29 17:44 Order name: Labs collected and sent; Complete Time: 19:18 rt 09/29 17:44 Order name: NPO; Complete Time: 19:17 rt 09/29 17:44 Order name: O2 Per Protocol; Complete Time: :17 rt 09/29 17:44 Order name: O2 Sat Monitoring; Complete Time: : rt 09/29 17:44 Order name: Stroke Swallow Screen; Complete Time: 19:17 rt EC:15 Rate is 83 beats/min. Rhythm is regular, Normal Sinus Rhythm with No ectopy. QRS [place] rt is Normal. [place] interval is normal. QRS interval is normal. QT interval is normal. No Q waves. T waves are Normal. No ST changes noted. Interpreted by me. Administered Medications: 19:17 Drug: Aspirin PO 325 mg PO once Route: PO; me1 19:18 Follow up: Response: No adverse reaction me1 19:51 Drug: HYDROcodone-acetaminophen PO 5 mg-325 mg 1 tabs PO once Route: PO; me1 20:52 Follow up: Response: No adverse reaction; Pain is decreased me1 Point of Care Testing: Blood Glucose: 18:10 Blood Glucose: 123 mg/dL; me1 Ranges: Critical Glucose Levels:Adult <50 mg/dl or >400 mg/dl <40 mg/dl or >180 mg/dl Disposition Summary: 09/30/23 19:36 Hospitalization Ordered Notes: Hospitalization Status: Observation rt Provider: Fracisco Gilliland rt [facility] rt Condition: Stable rt Problem: new rt Symptoms: are unchanged rt Bed/Room Type: Standard rt Room Assignment: 205(09/30/23 20:00) oh1 Diagnosis - Acute CVA rt Forms: - Medication Reconciliation Form rt - SBAR form rt - Leadership Thank You Letter rt NIH Stroke Scale - NIH Stroke Score Date: 09/30/2023 Time: 18:03 Total Score = 6 10. Dysarthria (speech clarity - read or repeat words) - 1(Mild to Moderate) 11. Extinction and Inattention (visual/tactile/auditory/spatial/personal) 1a. Level of Consciousness (LOC) - 0(Alert) 1b. Level of Consciousness (LOC) (Month \T\ Age) - 0(Both) 1c. LOC Commands (Open \T\ Closes Eyes/Patient Financial Specialist) - 0(Both) 2. Best Gaze (Lateral Gaze Paresis) - 0(Normal) 3. Visual Field Loss - 0(No visual loss) 4. Facial Palsy - 1(Minor Paralysis) 5a. Left Arm: Motor (10-second hold) - 0(No drift) 5b. Right Arm: Motor (10-second hold) - 2(Drift, some effort against gravity) 6a. Left Leg: Motor (5-second hold - always test supine) - 0(No drift) 6b. Right Leg: Motor (5-second hold - always test supine) - 1(Drift) 7. Limb Ataxia (finger/nose \T\ heel/adkins - test with eyes open) - 0(Absent) 8. Sensory Loss (pinprick arms/legs/face) - 1(Mild to moderate loss) 9. Best Language: Aphasia (description/naming/reading) - 0(No aphasia) Initials: me1 Signatures: Dispatcher [employer] EDMS Sandeep Wheeler MD MD rt Yumiko Erazo RN RN nj1 Michelle Mcgrath RN RN me1 Jeanette Manuel oh1 Corrections: (The following items were deleted from the chart) 17:45 17:45 BASIC METABOLIC PANEL+C.LAB.BRZ ordered. EDMS EDMS 17:45 17:45 CBC+H.LAB.BRZ ordered. EDMS EDMS 17:45 17:45 HEPATIC FUNCTION+C.LAB.BRZ ordered. EDMS EDMS 17:45 17:45 Troponin High Sensitivity+C.LAB.BRZ ordered. EDMS EDMS 17:45 17:45 MAGNESIUM+C.LAB.BRZ ordered. EDMS EDMS 17:45 17:45 PROTIME (+INR)+COAG.LAB.BRZ ordered. EDMS EDMS 17:45 17:45 PTT, ACTIVATED+COAG.LAB.BRZ ordered. EDMS EDMS 17:45 17:45 Neck Angio+CT.RAD.BRZ ordered. EDMS EDMS 17:45 17:45 CT-STROKE BRAIN W/O CONTRAST+CT.RAD.BRZ ordered. EDMS EDMS 17:45 17:45 Chest Single View+RAD.RAD.BRZ ordered. EDMS EDMS 20:00 19:36 rt oh1
--- NOTE | 2023-09-30 19:37 | ER ---
Nurse's Notes [facility] Name: Stefany Allison Age: 48 yrs Sex: Female : 1975 Arrival Date: 09/30/2023 Time: 17:33 Bed 18 Private MD: Diagnosis: Acute CVA Presentation: 09/29 17:38 Chief complaint: Patient states: Went to bed at around 9pm, woke up with dizziness, me1 states she is unsteady on her feet, leans towards the right during triage. States she has slurred speech. 17:38 Coronavirus screen: At this time, the client does not indicate any symptoms associated nj1 with coronavirus-19. Ebola Screen: Patient denies travel to an Ebola-affected area in the 21 days before illness onset. An acute neurological deficit is present. The charge nurse has been notified. Initial Sepsis Screen: Does the patient meet any 2 criteria? HR > 90 bpm. No. Patient's initial sepsis screen is negative. Does the patient have a suspected source of infection? No. Patient's initial sepsis screen is negative. Risk Assessment: Do you want to hurt yourself or someone else? Patient reports no desire to harm self or others. Onset of symptoms was September 30, 2023. 17:38 Method Of Arrival: Wheelchair nj1 17:38 Acuity: LISA 2 nj1 18:10 Pre-hospital glucose is not applicable to this patient. aa5 Triage Assessment: 20:51 The onset of the patients symptoms was September 29, 2023 at 21:00. me1 20:51 Neuro: Reports numbness in right arm and right leg weakness in right arm and right leg. me1 DE ALCHOLIZER: 20:51 LMP N/A - Post-menopause, Not me1 Stroke Activation: Symptom onset > 6 hours Physician: ED Attending; Name: Dr Wheeler; Notified At: 17:38; Arrived At: 17:40 Physician: Mid-Level Provider; Name: ; Notified At: 17:38; Arrived At: Physician: [not used]; Name: ; Notified At: ; Arrived At: Physician: [not used]; Name: ; Notified At: ; Arrived At: Physician: [not used]; Name: ; Notified At: ; Arrived At: Historical: - Allergies: 17:46 No Known Allergies; nj1 - PMHx: 17:46 COPD; CVA; Hyperlipidemia; Hypertension; Myocardial infarction; Turett's; nj1 - Immunization history:: Client reports having NOT received the Covid vaccine. - Infectious Disease History:: Denies. - Social history:: Smoking status: Patient reports the use of cigarette tobacco products, smokes one pack cigarettes per day. - Family history:: not pertinent. Screenin:03 [facility] ED Fall Risk Assessment (Adult) History of falling in the last 3 months, me1 including since admission No falls in past 3 months (0 pts) Confusion or Disorientation No (0 pts) Intoxicated or Sedated No (0 pts) Impaired Gait Yes (1 pt) Mobility Assist Device Used Yes (1 pt) Altered Elimination No (0 pt) Score/Fall Risk Level 3 or more points = High Risk Maintained a safe environment, Hourly rounding (assess needs \T\ fall precautionary measures) done, Used ambulatory aids as needed (educated on \T\ assisted with). Abuse screen: Denies threats or abuse. Nutritional screening: No deficits noted. Tuberculosis screening: No symptoms or risk factors identified. Assessment: 17:45 Reassessment: Pt to CT via wheelchair, accompanied by me. . aa5 18:00 Reassessment: Pt back from CT scan via wheelchair, accompanied by me. . aa5 18:03 VAN Scoring: Arm Drift: Severe drift Visual Disturbance: No visual disturbance noted. me1 Aphasia: No aphasia noted. Neglect: No neglect noted. [place] Swallow Protocol Exclusion Criteria: Exclusion Criteria Result: Proceed Brief Cognitive Screen What is your name? Normal, Where are you right now? Normal, What year is it? Normal. Oral Mechanism Examination Facial Symmetry: Normal, Motion: Normal, Lip Closure: Normal, Oral Mechanism Result: Normal. 3 oz Water Swallow Challenge: Pt able to drink all water without stopping, coughing, choking or throat clearing: Yes Result: PASS Notified: Sandeep Wheeler MD. TNKase (Tenecteplase) Screening: Indications: Definite evidence of stroke, ischemic, embolic, or hypertensive: Yes. Treatment will start within 4.5 hours onset of symptoms: No. General: Appears comfortable, well developed, well nourished, Behavior is calm, cooperative, appropriate for age. Pain: Complains of pain in generalized Pain currently is 10 out of 10 on a pain scale. Quality of pain is described as aching, Is continuous. Neuro: Level of Consciousness is awake, alert, obeys commands, Oriented to person, place, time, situation, Appropriate for age Rewards Consultant are weak on right Weakness in right arm(s) leg(s) Gait is unsteady, Speech is slurred, Facial droop on right, Pupils are Numbness in right arm and right leg. Cardiovascular: Patient's skin is warm and dry. Respiratory: Airway is patent Respiratory effort is even, unlabored, Respiratory pattern is regular, symmetrical. GI: No signs and/or symptoms were reported involving the gastrointestinal system. : No signs and/or symptoms were reported regarding the genitourinary system. EENT: No signs and/or symptoms were reported regarding the EENT system. Derm: Skin is intact, is healthy with good turgor, Skin is pink, warm \T\ dry. Musculoskeletal: Reports weakness in right arm and right leg numbness in right arm and right leg. 18:10 Reassessment: Pt now to CT for CTA via stretcher . aa5 Vital Signs: 17:38 BP 157 / 95; Pulse 104; Resp 18; Temp 97.5(TE); Pulse Ox 98% on R/A; Weight 68.04 kg nj1 (R); Height 5 ft. 4 in. (R); 18:30 BP 147 / 93; Pulse 86; Resp 16; Pulse Ox 96% ; me1 19:30 BP 159 / 95; Pulse 81; Resp 14; Pulse Ox 98% ; me1 20:30 BP 144 / 83; Pulse 85; Resp 14; Pulse Ox 96% ; me1 21:30 BP 137 / 98; Pulse 85; Resp 13; Pulse Ox 96% ; me1 22:30 BP 130 / 89; Pulse 87; Resp 12; Temp 98.2; Pulse Ox 94% ; me1 17:38 Body Mass Index 25.75 (68.04 kg, 162.56 cm) nj1 NIH Stroke Scale Scores: 18:03 NIHSS Score: 6 me1 ED Course: 17:35 Patient arrived in ED. im 17:41 Sandeep Wheeler MD is Attending Physician. rt 17:46 Triage completed. nj1 17:47 Arm band placed on. nj1 17:55 CT Stroke Brain w/o Contrast In Process Unspecified. EDMS 18:03 Patient has correct armband on for positive identification. Bed in low position. Call me1 light in reach. Side rails up X2. Provided Education on: POC. Verbalized understanding. . Client placed on continuous cardiac and pulse oximetry monitoring. NIBP monitoring applied. mobile device engineer on. Pulse ox on. NIBP on. 18:03 Initial lab(s) drawn, by me, sent to lab. Inserted saline lock: 20 gauge in left aa5 antecubital area, using aseptic technique. Blood collected. 18:03 No provider procedures requiring assistance completed. me1 18:17 Michelle Mcgrath, VAHID is Primary Nurse. me1 18:28 Stroke CXR 1 View In Process Unspecified. EDMS 18:31 CT Neck Angio In Process Unspecified. EDMS 18:31 Head angio In Process Unspecified. EDMS 18:50 EKG done, by ED staff, reviewed by Sandeep Wheeler MD. em1 19:36 Fracisco Gilliland MD is Hospitalizing Provider. rt 22:31 Patient admitted, IV remains in place. me1 Administered Medications: 19:17 Drug: Aspirin PO 325 mg PO once Route: PO; me1 19:18 Follow up: Response: No adverse reaction me1 19:51 Drug: HYDROcodone-acetaminophen PO 5 mg-325 mg 1 tabs PO once Route: PO; me1 20:52 Follow up: Response: No adverse reaction; Pain is decreased me1 Medication: 18:03 VIS not applicable for this client. ca1 Point of Care Testing: Blood Glucose: 18:10 Blood Glucose: 123 mg/dL; [facility] [place]: Outcome: 19:36 Decision to Hospitalize by Provider. rt 20:39 Admitted to Med/surg accompanied by tech, room 205, with chart, [place] [facility] [place], receipt confirmed with Bri. 22:31 Admitted to Med/surg me1 22:31 Condition: stable 22:31 Instructed on the need for admit, 22:32 Patient left the ED. me1 NIH Stroke Scale - NIH Stroke Score Date: 09/30/2023 Time: 18:03 Total Score = 6 10. Dysarthria (speech clarity - read or repeat words) - 1(Mild to Moderate) 11. Extinction and Inattention (visual/tactile/auditory/spatial/personal) 1a. Level of Consciousness (LOC) - 0(Alert) 1b. Level of Consciousness (LOC) (Month \T\ Age) - 0(Both) 1c. LOC Commands (Open \T\ Closes Eyes/Final Armature Tester) - 0(Both) 2. Best Gaze (Lateral Gaze Paresis) - 0(Normal) 3. Visual Field Loss - 0(No visual loss) 4. Facial Palsy - 1(Minor Paralysis) 5a. Left Arm: Motor (10-second hold) - 0(No drift) 5b. Right Arm: Motor (10-second hold) - 2(Drift, some effort against gravity) 6a. Left Leg: Motor (5-second hold - always test supine) - 0(No drift) 6b. Right Leg: Motor (5-second hold - always test supine) - 1(Drift) 7. Limb Ataxia (finger/nose \T\ heel/adkins - test with eyes open) - 0(Absent) 8. Sensory Loss (pinprick arms/legs/face) - 1(Mild to moderate loss) 9. Best Language: Aphasia (description/naming/reading) - 0(No aphasia) Initials: me1 Signatures: Dispatcher [employer] EDSanty Vasquez em1 Tiffanie Issa, RN RN aa5 Sandeep Wheeler MD MD rt Yumiko Erazo RN RN nj1 Kaylin Smith Michelle, VAHID RN me1 Corrections: (The following items were deleted from the chart) 20:41 17:38 Chief complaint: Patient states: Went to bed at around 9pm, woke up with me1 dizziness, states she is unsteady on her feet, leans towards the right during triage. States she has slurred speech. nj1
[2023-09-30] MEDS ORDERED: HYDROCODONE/APAP 5/325 MG TAB ONE (19:46)
--- NOTE | 2023-09-30 20:24 | P.HP ---
Certification for Inpatient With expected LOS: >2 Midnights Practitioner: I am a practitioner with admitting privileges, knowledge of patient current condition, hospital course, and medical plan of care. Services: Services provided to patient in accordance with Admission requirements found in Title 42 Section 412.3 of the Code of Federal Regulations Patient History Date of Service: 09/30/23 Reason for admission: Stroke History of Present Illness: Patient is 48 years of age 10:00 started complaining of's with speech right- sided facial weakness and right-sided weakness right arm greater than the right leg appeared in the hospital stroke about 20 years ago otherwise she is very alert responsive cooperative is an active smoker does not see any physician does not take any medications at home Allergies No Known Allergies Allergy (Unverified 05/25/15 17:09) Home Medications: Amiodarone HCl [Cordarone*] 400 mg PO BID #120 tab 08/28/19 Amox/Clavulanate [Augmentin 875-125 Tab] 875 mg PO BID #28 tab 08/28/19 Apixaban [Eliquis] 5 mg PO BID #60 tablet 08/28/19 Budesonide/Formoterol Fumarate [Symbicort 160-4.5 Mcg Inhaler] 2 puff IH BID #1 hfa.aer.ad 08/28/19 Levalbuterol Tartrate [Xopenex Hfa] 2 puff IH TID PRN #1 hfa.aer.ad 08/28/19 Metoprolol Tartrate [Lopressor*] 12.5 mg PO BID #60 tab 08/28/19 Nicotine [Nicoderm*] 21 mg TD DAILY #30 patch.[email or web address] 08/28/19 - Past Medical/Surgical History Diabetic: No -: Hyperlipidemia -: Hypertension -: CVA -: Myocardial infarction -: Tourettes -: Hysterectomy Psychosocial/ Personal History: Patient lives a house by herself. - Family History Mother -: Heart disease Father -: Heart disease, Cancer Notes: Brain cancer - Social History Smoking Status: Current every day smoker Alcohol use: Yes CD- Drugs: Yes Caffeine use: Yes Review of Systems 10-point ROS is otherwise unremarkable Physical Examination - Vital Signs Temperature: 97.5 F Blood Pressure: 151/93 Pulse: 100 Respirations: 20 - Physical Exam General: Alert, In no apparent distress, Oriented x3 HEENT: Atraumatic Neck: Supple Respiratory: Clear to auscultation bilaterally Cardiovascular: No edema, Regular rate/rhythm, Normal S1 S2 Gastrointestinal: Normal bowel sounds, Soft and benign, Non-distended Musculoskeletal: No clubbing, No swelling, No contractures Integumentary: No rashes, No breakdown Neurological: Other (Is a little slurred speech she has some facial weakness on the left side and weakness on the right side with right arm greater than the right leg is very alert oriented x 3) - Studies Laboratory Data (last 24 hrs) 09/30/23 09/30/23 09/30/23 18:03 18:03 18:03 WBC 10.60 Hgb 14.4 Hct 44.1 Plt Count 296 PT 9.9 INR 0.88 APTT 34.7 Sodium 139 Potassium 3.9 BUN 18 Creatinine 0.99 Glucose 126 H Magnesium 2.3 Total Bilirubin 0.3 AST 24 ALT 37 Alkaline Phosphatase 108 Assessment and Plan - Problems (Diagnosis) (1) Stroke Current Visit: Yes Status: Acute Plan: Patient is 48 years of age presented with right-sided weakness left-sided facial weakness to have a stroke although her CT scan of the head is negative the symptoms started around 10:10 AM on 8 3 is outside the window for thrombolytic therapy history of prior stroke labs chemistries all reviewed fairly unremarkable plan to admit observe seizure precautions continue with aspirin neurology consult MRI protocol for stroke patient is able to take her medication Qualifiers: CVA mechanism: thrombosis Laterality of affected vessel: right - Advance Directives Does patient have a Living Will: No Does patient have a Durable POA for Healthcare: No
[2023-09-30] MEDS: ATORVASTATIN 40 MG TAB PO SCH (21:00)
[2023-09-30] MEDS: NA CHLORIDE 0.9% 1,000 ML IV SCH (23:16)
[2023-09-30 23:52] VITALS: BMI 29.9
[2023-10-01] MEDS: ASPIRIN EC 81 MG TAB PO SCH (07:42)
[2023-10-01] MEDS: NICOTINE 14 MG/PAT TD SCH (07:42)
[2023-10-01] MEDS: ENOXAPARIN 40 MG/0.4 ML SQ SCH (07:43)
--- NOTE | 2023-10-01 09:59 | P.PN ---
Date of Service: 10/01/23 Subjective: Worsening right upper extremity weakness overnight Patient emotional state about situation, crying ROS: 10 point ROS as noted above, otherwise negative Physical exam GEN: Alert, oriented, NAD HEENT: Normal conjunctiva, sclera anicteric CV: Regular rate and rhythm, no edema Pulm: Nonlabored respirations on room air ABD: Soft, nontender, nondistended MSK: No joint tenderness Integumentary: No rashes Neuro: Speech mildly slurred, right-sided facial droop, severe right upper extremity weakness worse distally, mild right lower extremity weakness NIH-7 Vitals reviewed Assessment: Right-sided weakness, dysarthria suspected ischemic CVA Hyperlipidemia Tobacco use disorder Plan: Right-sided weakness, dysarthria suspected ischemic CVA Patient with worsening right upper extremity weakness, no effort against gravity but able to do some movement when gravity is limited Right lower extremity drifts but does not hit bed Right-sided facial weakness with dysarthria present NIH score currently 7 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
[2023-10-01] MEDS: HYDROCODONE/APAP 5/325 MG TAB PO PRN (11:54)
[2023-10-02 06:33] LABS: Hematocrit 44.9 % (36.0-45.0); Hemoglobin 14.8 g/dL (12.0-15.0); MCH 29.9 pg (27.0-35.0); MCHC 32.9 g/dL (32.0-36.0); MCV 90.9 fL (80-100); MPV 8.2 fL (7.6-11.3); Platelets 297 thou/uL (152-406); RBC Red Blood Cell Count 4.94 M/uL (3.86-4.86); Red Cell Distribution Width 14.4 % (12.1-15.2)
[2023-10-02] MEDS: FOLIC ACID 1 MG TABLET PO SCH (08:22)
[2023-10-02] MEDS: CLOPIDOGREL 75 MG TABLET PO SCH (08:23)
--- NOTE | 2023-10-02 11:24 | RAD REPORT ---
EXAM DESCRIPTION: MRI - Brain Wo Cont - 10/02/2023 10:48 am CLINICAL HISTORY: Right-sided weakness. R side stroke COMPARISON: Noncontrast head CT and CT angiogram 09/30/2023 TECHNIQUE: Multiplanar multisequence MRI of the brain performed without IV contrast. FINDINGS: Focus of diffusion restriction along the left posterior limb of internal capsule, with cor responding T2/FLAIR hyperintensity. No evidence of acute intracranial hemorrhage or abnormal extra-axial fluid collections. Ventricular caliber within normal for age. Midline structures are unremarkable. Other minimal subcortical and deep white matter T2/FLAIR hyperintensities, nonspecific, but suggestiv e of chronic small vessel ischemic changes. No mass effect or midline shift. Major vascular flow voids are preserved. Mastoid air cells and paranasal sinuses are clear. IMPRESSION: Lacunar infarct along the left posterior limb of internal capsule, with imaging features suggesting late acute to subacute nature. Other minimal deep white matter signal abnormalities as above, nonspecific, but suggest mild chronic small vessel ischemic changes.
--- NOTE | 2023-10-02 12:49 | P.PN ---
Date of Service: 10/02/23 Subjective: Still with very weak RUE Very upset about situation/cva No acute events overnight ROS: 10 point ROS as noted above, otherwise negative Physical exam GEN: Alert, oriented, NAD HEENT: Normal conjunctiva, sclera anicteric CV: Regular rate and rhythm, no edema Pulm: Nonlabored respirations on room air ABD: Soft, nontender, nondistended MSK: No joint tenderness Integumentary: No rashes Neuro: Speech mildly slurred, right-sided facial droop, severe right upper extremity weakness worse distally, mild right lower extremity weakness NIH-7 Vitals reviewed Assessment: Right-sided weakness, dysarthria suspected ischemic CVA Hypertension Hyperlipidemia Tobacco use disorder Plan: Right-sided weakness, dysarthria suspected ischemic CVA Patient with worsening right upper extremity weakness, no effort against gravity but able to do some movement when gravity is limited Right lower extremity drifts but does not hit bed Right-sided facial weakness with dysarthria present NIH score currently 7 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 CT head without contrast in the ER was negative for acute findings, CTA head neck negative for large vessel occlusions MRI brain 10/01 shows lacunar infarct along the left posterior limb of the inter nal capsule with imaging features suggesting late acute to subacute nature PT, OT, speech evals, was limited by emotional upset with PT today but did participate Likely to require inpatient rehab at discharge given severity of weakness/deficits Continue asa, statin, plavix, folic acid Hypertension Still allowing for some permissive hypertension today Not on any meds at home If still elevated would consider starting bp meds in the coming days Hyperlipidemia Started on atorvastatin Tobacco use disorder Smokes around a pack per day, given NicoDerm patch Discussed need for cessation, risk for stroke DVT PPX: Lovenox Code status: Forensic Chemist Spent Managing Pts Care (In Minutes): 35
--- NOTE | 2023-10-02 17:02 | EKG ---
Test Date: 2023-09-30 Test Time: 18:45:36 [place] Machine: SUMEET MEASUREMENT RESULTS: Intervals: Rate: 83 ME: 204 QRSD: 100 QT: 418 QTc: 491 [place]: P: 77 ME: 204 QRS: 72 T: 75 INTERPRETIVE STATEMENTS: Normal sinus rhythm Prolonged QT Abnormal ECG Compared to ECG 07/15/2020 12:33:13 Prolonged QT interval now present Electronically Signed On 10-02-23 16:57:38 CDT by Robert Price
[2023-10-03 05:47] LABS: Hematocrit 47.2 % (36.0-45.0); Hemoglobin 15.4 g/dL (12.0-15.0); MCH 29.7 pg (27.0-35.0); MCHC 32.7 g/dL (32.0-36.0); MCV 90.9 fL (80-100); MPV 7.8 fL (7.6-11.3); Platelets 303 thou/uL (152-406); RBC Red Blood Cell Count 5.19 M/uL (3.86-4.86); Red Cell Distribution Width 14.3 % (12.1-15.2)
[2023-10-03 06:01] LABS: Potassium 3.9 mEq/L (3.5-5.1)
[2023-10-03 06:05] LABS: Anion Gap 4.9 mEq/L (5.0-15.0)
[2023-10-03] MEDS: lisinopriL 5 MG TAB PO SCH (08:34)
[2023-10-03] MEDS: CYCLOBENZAPRINE 10 MG TAB PO PRN (09:47)
[2023-10-03] MEDS: HYDROCODONE/APAP 5/325 MG TAB PO PRN (10:46)
--- NOTE | 2023-10-03 14:52 | P.PN ---
Date of Service: 10/03/23 Subjective: Awake, Physical therapy in the room extremely upset about not being able to use her right arm ROS: 10 point ROS as noted above, otherwise negative Physical exam GEN: Alert and oriented x3, anxious HEENT: Normal conjunctiva, sclera anicteric CV: NSR, S1 S2 present, no edema Pulm: Nonlabored respirations, Bilaterally clear on auscultation on room air ABD: Soft on palpation, NT/ND MSK: No joint tenderness Integumentary: No rashes Neuro: Speech mildly slurred, right-sided facial droop, severe right upper extremity weakness worse distally, mild right lower extremity weakness NIH-7 Vitals reviewed Assessment: Right-sided weakness, dysarthria suspected ischemic CVA Anxiety Hypertension Hyperlipidemia Tobacco use disorder Plan: Right-sided weakness, dysarthria suspected ischemic CVA -Initial assessment Right-sided weakness, dysarthria suspected ischemic CVA -Patient with worsening right upper extremity weakness, no effort against gravity but able to do some movement when gravity is limited -Right lower extremity drifts -Right-sided facial weakness with dysarthria present -NIH score currently 7 -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 Pritchett consulted Anxiety -Severely emotional and panic -UDS pending Hypertension -Lisinopril started today 10/03/23 -SBP 158 -Not on any meds at home Hyperlipidemia -Continue atorvastatin Tobacco use disorder -Smokes around a pack per day, given NicoDerm patch -Discussed need for cessation, risk for stroke DVT PPX: Lovenox Code status: Full
[2023-10-03 19:35] LABS: Barbiturates NEGATIVE (NEGATIVE); Benzodiazepines NEGATIVE (NEGATIVE); Cocaine NEGATIVE (NEGATIVE); METHAMPHETAM POSITIVE (NEGATIVE); Methadone NEGATIVE (NEGATIVE); Opiates POSITIVE (NEGATIVE); Phencyclidine NEGATIVE (NEGATIVE); THC Cannibis POSITIVE (NEGATIVE)
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
[2023-10-04] MEDS: DULOXETINE 30 MG CAP PO SCH (08:26)
[2023-10-04] MEDS: MAGNESIUM OXIDE 400 MG TAB PO SCH (08:34)
[2023-10-04] MEDS ORDERED: LORazepam 2 MG/ML VIAL IV PRN ×2 (11:52→12:14)
[2023-10-04] MEDS: NA CHLORIDE 0.9% 1,000 ML IV SCH (12:16)
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
[2023-10-05 06:47] LABS: Absolute Basophils 0.1 K/uL (0-0.5); Absolute Eosinophils 0.2 K/uL (0-0.5); Absolute Lymphocytes (CBC) 2.2 K/uL (0.7-4.9); Absolute Monocytes 0.7 K/uL (0.1-1.3); Basophils % 1.1 % (0-1.3); Eosinophils % 2.6 % (0-4.4); Hemoglobin 15.4 g/dL (12.0-15.0); MCH 29.3 pg (27.0-35.0); MCHC 32.1 g/dL (32.0-36.0); MCV 91.2 fL (80-100); Monocytes % 10.2 % (3.3-12.3); Neutrophils % 56.1 % (41.7-73.7); Platelets 294 thou/uL (152-406); RBC Red Blood Cell Count 5.26 M/uL (3.86-4.86); Red Cell Distribution Width 14.1 % (12.1-15.2)
[2023-10-05 07:02] LABS: Anion Gap 9.1 mEq/L (5.0-15.0); Phosphorus 3.3 mg/dL (2.5-4.9); Potassium 4.1 mEq/L (3.5-5.1)
--- NOTE | 2023-10-05 08:55 | P.DS ---
Admission Date: 09/30/23 Discharge Date: 10/05/23 Disposition: TRANSFER TO INPATIENT REHAB Discharge Condition: GOOD Reason for Admission: Stroke Brief History of Present Illness: Diagnosis Right-sided weakness, dysarthria suspected ischemic CVA Anxiety Hypertension Hyperlipidemia Tobacco use disorder Substance abuse HPI 09/30/2023 Stefany Allison is 48 years of age 10:00 started complaining of's with speech right-sided facial weakness and right-sided weakness right arm greater than the right leg appeared in the hospital stroke about 20 years ago otherwise she is very alert responsive cooperative is an active smoker does not see any physician does not take any medications at home Hospital Course: Stefany Allison is a pleasant 48 year old female with a past medical history s ignificant for hypertension, anxiety, hyperlipidemia, tobacco use disorder, substance abuse who was admitted to the [facility] on 09/30/23 for right sided weakness. Stefany presented to the ED reporting she woke up and was not able to use her right arm. Her last known normal was before she went to bed and this puts her outside the window for TNK. Head CT with no intracranial abnormality, MRI head showing lacunar infarct along the left posterior limb of the internal capsule. She was started on folic acid, plavix, aspirin, and lipitor. She has tolerated physical therapy and was accepted to inpatient rehab. She continues to have decreased mobility to her right arm. Improvement was seen with her anxiety over her new condition and she gained confidence to continue to work. Education about substance abuse was provided. She is tolerating PO diet, urinating without difficulty, remained hemodynamically stable. On 10/05/23, Stefany was seen on morning rounds and deemed medically stable for discharge to inpatient rehab. Stefany was discharged with instructions to schedule follow-up appointments with Dr. Pritchett and PCP. She was provided prescriptions for aspirin, folic acid, Plavix, lisinopril, Lipitor, Flexeril, Cymbalta, and magnesium oxide. Physical exam GEN: Alert and oriented x3, no acute distress, calm HEENT: Normal conjunctiva, sclera anicteric CV: Regular rate and rhythm, S1 S2 present, no edema Pulm: Symmetrical chest wall movement, Bilaterally clear on auscultation, on room air ABD: Soft and benign on palpation, NT/ND, active bowel sounds MSK: No joint tenderness, 2+ peripheral pulses Integumentary: No rashes Neuro: severe right upper extremity weakness worse distally, mild right lower extremity weakness, agitation Vital Signs/Physical Exam: Temp Pulse Resp BP Pulse Ox 97.6 F 74 16 141/55 H 99 10/05/23 04:00 10/05/23 04:00 10/05/23 04:00 10/05/23 04:00 10/05/23 04:00 Laboratory Data at Discharge: WBC 7.20 thou/uL (4.3-10.9) 10/05/23 06:03 Hgb 15.4 g/dL (12.0-15.0) H 10/05/23 06:03 Hct 48.0 % (36.0-45.0) H 10/05/23 06:03 Plt Count 294 thou/uL (152-406) 10/05/23 06:03 PT 9.9 SECONDS (9.4-12.5) 09/30/23 18:03 INR 0.88 09/30/23 18:03 APTT 34.7 SECONDS (24.3-36.9) 09/30/23 18:03 Sodium 138 mEq/L (136-145) 10/05/23 06:05 Potassium 4.1 mEq/L (3.5-5.1) 10/05/23 06:05 BUN 19 mg/dL (7-18) H 10/05/23 06:05 Creatinine 0.59 mg/dL (0.55-1.02) 10/05/23 06:05 Glucose 81 mg/dL (74-106) 10/05/23 06:05 Phosphorus 3.3 mg/dL (2.5-4.9) 10/05/23 06:05 Magnesium 2.0 mg/dL (1.6-2.4) 10/05/23 06:05 Total Bilirubin 0.3 mg/dL (0.2-1.0) 09/30/23 18:03 AST 24 U/L (15-37) 09/30/23 18:03 ALT 37 U/L (13-56) 09/30/23 18:03 Alkaline Phosphatase 108 U/L (45-117) 09/30/23 18:03 Triglycerides 95 mg/dL (<150) 10/01/23 04:48 Cholesterol 210 mg/dL (<200) H 10/01/23 04:48 HDL Cholesterol 56 mg/dL (40-60) 10/01/23 04:48 Cholesterol/HDL Ratio 3.75 10/01/23 04:48 Home Medications: Aspirin [Aspirin EC 81 MG] 81 mg PO DAILY 30 Days #30 tab 10/05/23 Atorvastatin Calcium [Lipitor] 40 mg PO BEDTIME 30 Days #30 tab 10/05/23 Clopidogrel Bisulfate [Plavix*] 75 mg PO DAILY 30 Days #30 tab 10/05/23 Cyclobenzaprine [Flexeril*] 10 mg PO BIDP PRN 30 Days #60 tab 10/05/23 Duloxetine HCl [Cymbalta] 30 mg PO DAILY 30 Days #30 cap 10/05/23 Folic Acid 1 mg PO DAILY 30 Days #30 tab 10/05/23 Magnesium Oxide [Mag 0X*] 400 mg PO DAILY 30 Days #30 tab 10/05/23 lisinopriL [Prinivil*] 5 mg PO DAILY 30 Days #30 tab 10/05/23 New Medications: Aspirin [Aspirin EC 81 MG] 81 mg PO DAILY 30 Days #30 tab Duloxetine HCl [Cymbalta] 30 mg PO DAILY 30 Days #30 cap Cyclobenzaprine [Flexeril*] 10 mg PO BIDP PRN 30 Days #60 tab PRN Reason: Muscle Spasms Folic Acid 1 mg PO DAILY 30 Days #30 tab Atorvastatin Calcium [Lipitor] 40 mg PO BEDTIME 30 Days #30 tab Magnesium Oxide [Mag 0X*] 400 mg PO DAILY 30 Days #30 tab Clopidogrel Bisulfate [Plavix*] 75 mg PO DAILY 30 Days #30 tab lisinopriL [Prinivil*] 5 mg PO DAILY 30 Days #30 tab Physician Discharge Instructions: Stefany Allison was treated for stroke, will be continue to strengthen at inpatient rehab. She is tolerating PO diet, working well with physical therapy, has good family support. Follow up with Dr. Pritchett, Neurologist. We have start a blood pressure medication, monitor Blood pressure regularly. 1. Please call and schedule a follow-up appointment with your PCP in 3-5 days - Please follow-up with your PCP for medication refills/adjustments 2. Please call and schedule a follow-up appointment with Dr. Pritchett in one week or at discharge from inpatient rehab 3. Continue regular diet 4. activity restrictions, fall precaution, work with physical therapy to improve strength to right side 5. Return to the ED if symptoms worsen New medications Cymbalta 30 mg p.o. daily Flexeril 10 mg p.o. twice daily as needed for muscle cramping Folic acid 1 mg p.o. daily Atorvastatin 40 mg p.o. at bedtime Magnesium oxide 400 mg p.o. daily Plavix 75 mg p.o. daily Lisinopril 5 mg p.o. daily Aspirin 81 mg PO daily Diet: Regular Activity: Fall precautions Followup: Roberto Pritchett MD [ASSOCIATE-ACTIVE - CAN ADMIT] - 1 Week NONE,NONE [Primary Care Provider] -
[2023-10-05 09:07] VITALS: BP 142/95; TEMP 97
[2023-10-05 09:21] VITALS: O2SAT 98
== END 2023-10-05 11:14 | DRG 65 ==
LOC: ER 17:33 → 2ND 19:19
PROVIDERS: ADMIT Internal Medicine Sleep Medicine; ATTEND Internal Medicine
DX: I63.9 Cerebral infarction, unspecified (principal); G81.91 Hemiplegia, unspecified affecting right dominant side; F41.9 Anxiety disorder, unspecified; E78.5 Hyperlipidemia, unspecified; H54.61 Unqualified visual loss, right eye, normal vision left eye; J44.9 Chronic obstructive pulmonary disease, unspecified; I25.2 Old myocardial infarction; F17.210 Nicotine dependence, cigarettes, uncomplicated; R29.706 NIHSS score 6; R47.81 Slurred speech; R29.810 Facial weakness; R47.1 Dysarthria and anarthria; Z60.2 Problems related to living alone; Z79.82 Long term (current) use of aspirin; Z79.01 Long term (current) use of anticoagulants; Z79.02 Long term (current) use of antithrombotics/antiplatelets; Z86.73 Personal history of transient ischemic attack (TIA), and cerebral infarction without residual deficits; Z28.310 Unvaccinated for COVID-19; Z79.899 Other long term (current) drug therapy
CPT/HCPCS: 36415; 70450; 70496; 70498; 70551; 71045; 80048; 80061; 80076; 80307; 82947; 83735; 84100; 84484; 85025; 85027; 85610; 85730; 92523; 93005; 97112; 97116; 97161; 97165; 97530; 97760; 99285; J1650; J7030; Q9967

== ENCOUNTER 2023-10-05 09:13 | Inpatient (IN) | payer OTHER ==
[2023-10-05] MEDS ORDERED: DOCUSATE NA/SENNA CONC 1 TAB PO PRN (19:23)
[2023-10-05] MEDS: DOCUSATE NA/SENNA CONC 1 TAB PO SCH (20:55)
[2023-10-05] MEDS: DULOXETINE 30 MG CAP PO SCH (20:56)
[2023-10-05] MEDS: MELATONIN 3 MG TABLET PO PRN (20:56)
[2023-10-05] MEDS: ATORVASTATIN 40 MG TAB PO SCH (20:56)
[2023-10-05] MEDS: APIXABAN 2.5 MG TABLET PO SCH (20:56)
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
[2023-10-06 06:17] LABS: Absolute Basophils 0.1 K/uL (0-0.5); Absolute Eosinophils 0.2 K/uL (0-0.5); Absolute Lymphocytes (CBC) 2.3 K/uL (0.7-4.9); Absolute Monocytes 0.6 K/uL (0.1-1.3); Absolute Neutrophil 4.2 K/uL (1.8-8.0); Basophils % 0.9 % (0-1.3); Eosinophils % 2.3 % (0-4.4); Hematocrit 47.7 % (36.0-45.0); Hemoglobin 15.5 g/dL (12.0-15.0); Lymphocytes % 30.9 % (15.3-44.8); MCH 29.5 pg (27.0-35.0); MCHC 32.6 g/dL (32.0-36.0); MCV 90.7 fL (80-100); MPV 8.1 fL (7.6-11.3); Monocytes % 8.6 % (3.3-12.3); Neutrophils % 57.3 % (41.7-73.7); Platelets 326 thou/uL (152-406); RBC Red Blood Cell Count 5.25 M/uL (3.86-4.86); Red Cell Distribution Width 14.2 % (12.1-15.2)
[2023-10-06 06:40] LABS: Albumin 3.4 g/dL (3.4-5.0); Anion Gap 8.9 mEq/L (5.0-15.0); Magnesium 2.1 mg/dL (1.6-2.4); Potassium 3.9 mEq/L (3.5-5.1); Prealbumin 16.8 mg/dL (20-40)
[2023-10-06] MEDS ORDERED: CLOPIDOGREL 75 MG TABLET PO SCH (08:00)
[2023-10-06] MEDS: ASPIRIN EC 81 MG TAB PO SCH (10:22)
[2023-10-06] MEDS: NICOTINE 14 MG/PAT TD SCH (10:22)
[2023-10-06] MEDS: MAGNESIUM HYDROXIDE 8% 30 ML PO SCH (10:22)
[2023-10-06] MEDS: FOLIC ACID 1 MG TABLET PO SCH (10:23)
[2023-10-06] MEDS: MAGNESIUM OXIDE 400 MG TAB PO SCH (10:24)
[2023-10-06] MEDS: lisinopriL 5 MG TAB PO SCH (10:24)
--- NOTE | 2023-10-06 13:19 | P.RH.PN ---
Estimated Length of Stay: 21 Expected Discharge Date: 10/24/23 Discharge Disposition Plan: Home Family Support: Yes Assisted Goal: Mobility, Transfers, Self Care Vital Signs: Last Vital Signs Temp 97.2 F 10/06/23 08:00 Pulse 88 10/06/23 10:24 Resp 16 10/06/23 08:00 BP 134/70 10/06/23 10:24 Pulse Ox 98 10/06/23 08:00 Laboratory: Laboratory Last Values WBC 7.30 thou/uL (4.3-10.9) 10/06/23 05:23 RBC 5.25 M/uL (3.86-4.86) H 10/06/23 05:23 Hgb 15.5 g/dL (12.0-15.0) H 10/06/23 05:23 Hct 47.7 % (36.0-45.0) H 10/06/23 05:23 MCV 90.7 fL (80-100) 10/06/23 05:23 MCH 29.5 pg (27.0-35.0) 10/06/23 05:23 MCHC 32.6 g/dL (32.0-36.0) 10/06/23 05:23 RDW 14.2 % (12.1-15.2) 10/06/23 05:23 Plt Count 326 thou/uL (152-406) 10/06/23 05:23 MPV 8.1 fL (7.6-11.3) 10/06/23 05:23 Neutrophils % 57.3 % (41.7-73.7) 10/06/23 05:23 Lymphocytes % 30.9 % (15.3-44.8) 10/06/23 05:23 Monocytes % 8.6 % (3.3-12.3) 10/06/23 05:23 Eosinophils % 2.3 % (0-4.4) 10/06/23 05:23 Basophils % 0.9 % (0-1.3) 10/06/23 05:23 Absolute Neutrophils 4.2 K/uL (1.8-8.0) 10/06/23 05:23 Absolute Lymphocytes 2.3 K/uL (0.7-4.9) 10/06/23 05:23 Absolute Monocytes 0.6 K/uL (0.1-1.3) 10/06/23 05:23 Absolute Eosinophils 0.2 K/uL (0-0.5) 10/06/23 05:23 Absolute Basophils 0.1 K/uL (0-0.5) 10/06/23 05:23 Sodium 138 mEq/L (136-145) 10/06/23 05:23 Potassium 3.9 mEq/L (3.5-5.1) 10/06/23 05:23 Chloride 108 mEq/L (98-107) H 10/06/23 05:23 Carbon Dioxide 25 mEq/L (21-32) 10/06/23 05:23 Anion Gap 8.9 mEq/L (5.0-15.0) 10/06/23 05:23 BUN 18 mg/dL (7-18) 10/06/23 05:23 Creatinine 0.63 mg/dL (0.55-1.02) 10/06/23 05:23 Est GFR (CKD-EPI) 108 ml/min (=/>90) 10/06/23 05:23 Glucose 86 mg/dL (74-106) 10/06/23 05:23 Calcium 9.9 mg/dL (8.5-10.1) 10/06/23 05:23 Magnesium 2.1 mg/dL (1.6-2.4) 10/06/23 05:23 Albumin 3.4 g/dL (3.4-5.0) 10/06/23 05:23 Prealbumin 16.8 mg/dL (20-40) L 10/06/23 05:23 Weight: 174 lb Physician Update: Labs reviewed and are stable. Mild malnutrition. BIMS 12, impulsive. No pain. Ambulated with hemiwalker. SLUMS 15, MOCA 18. Improved swallowing and no more drooling. Max assist with car transfer. Hemiwalker 85' with max assist. Stairs 5 sets x 2. Wheelchair 250' min assist. Trace right upper extremity movement. Min bathing, max lower body dressing. Summary: Patient's care plan and fdc goals have been reviewed and revised as necessary. Please see the Rehabilitation Signature page for all necessary signatures.
[2023-10-06 16:54] LABS: Specific Gravity 1.018 (1.005-1.030); Sqamous Epithelial <5 /HPF (None Seen); Urine Bacteria <20 /HPF (<20); Urine Bilirubin NEGATIVE (Negative); Urine Blood Trace (Negative); Urine Clarity Extremely Turbid (Clear); Urine Color Light-Yellow (Yellow); Urine Culture Reflex Order NOT NEEDED; Urine Glucose NEGATIVE (Negative); Urine Ketones NEGATIVE (Negative); Urine Micro Reflex YN NO BILL MICROSCOPIC; Urine Mucus 1+ /HPF (None Seen); Urine Nitrite NEGATIVE (Negative); Urine Protein NEGATIVE (Negative); Urine RBC None Seen /HPF (None Seen); Urine Urobilinogen 1+ (Normal); Urine WBC <5 /HPF (<5)
[2023-10-07] MEDS ORDERED: LIDOCAINE 4% PATCH ONE (09:10)
[2023-10-07] MEDS: ACETAMINOPHEN 500 MG TAB PO PRN (09:13)
[2023-10-07] MEDS: LIDOCAINE 4% PATCH TOP SCH (09:38)
[2023-10-07] MEDS: CYCLOBENZAPRINE 10 MG TAB PO PRN (23:22)
[2023-10-08] MEDS: TRAZODONE 50 MG TABLET PO PRN (02:16)
[2023-10-08 12:23] LABS: Specific Gravity 1.018 (1.005-1.030); Sqamous Epithelial <5 /HPF (None Seen); Urine Bacteria Loaded /HPF (<20); Urine Bilirubin NEGATIVE (Negative); Urine Blood 2+ (Negative); Urine Clarity Extremely Turbid (Clear); Urine Color Yellow (Yellow); Urine Culture Reflex Order NOT NEEDED; Urine Glucose NEGATIVE (Negative); Urine Ketones NEGATIVE (Negative); Urine Microscopic Reflex YN ORDER UMIC; Urine Mucus Slight /HPF (None Seen); Urine Nitrite 2+ (Negative); Urine Protein NEGATIVE (Negative); Urine RBC <5 /HPF (None Seen); Urine Urobilinogen Normal (Normal); Urine WBC <5 /HPF (<5)
[2023-10-08 18:29] VITALS: BP 113/74; TEMP 97.2
[2023-10-08] MEDS: CRANBERRY FRUIT EXTRACT 200 MG CAP PO SCH (20:10)
== END 2023-10-08 21:16 | disposition left against medical advice (07) | DRG 57 ==
LOC: 5TH 11:25
PROVIDERS: ADMIT Psychiatry & Neurology Neurology with Special Qualifications in Child Neurology; ATTEND Psychiatry & Neurology Neurology with Special Qualifications in Child Neurology
DX: I69.351 Hemiplegia and hemiparesis following cerebral infarction affecting right dominant side (principal); F95.2 Tourette's disorder; I10 Essential (primary) hypertension; E78.5 Hyperlipidemia, unspecified; F32.A Depression, unspecified; F19.10 Other psychoactive substance abuse, uncomplicated; K59.00 Constipation, unspecified; I25.2 Old myocardial infarction; Z72.0 Tobacco use
CPT/HCPCS: 36415; 80048; 81001; 82040; 83735; 84134; 85025; 87086; 87088; 92523; 97110; 97116; 97129; 97163; 97165; 97530; 97542; J2001

== ENCOUNTER 2024-12-02 11:55 | Emergency (ER) | payer OTHER ==
[2024-12-02] MEDS ORDERED: HYDROCODONE/APAP 5/325 MG TAB ONE (12:25)
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
[2024-12-02 14:15] VITALS: BP 126/88; TEMP 98; O2SAT 100
== END 2024-12-02 14:00 | disposition home or self-care (01) ==
LOC: ER 11:55
DX: S40.021A Contusion of right upper arm, initial encounter (principal); Y04.2XXA Assault by strike against or bumped into by another person, initial encounter; Y93.89 Activity, other specified; Y92.9 Unspecified place or not applicable; J44.9 Chronic obstructive pulmonary disease, unspecified; E78.5 Hyperlipidemia, unspecified; I10 Essential (primary) hypertension; I25.2 Old myocardial infarction
CPT/HCPCS: 99283